=== PATIENT | male | born 1995 | race Caucasian/White ===

== ENCOUNTER 2023-10-04 11:07 | Outpatient (OUT) | payer BC, SELFPAY ==
--- NOTE | 2023-10-04 11:57 | P.GSHP_ITS ---
History of Present Illness History of Present Illness Chief complaint: uretheral stricture Narrative: Patient presents for preadmission testing. 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 The patient states he has dysuria, urinary retention, and incomplete bladder emptying. He denies abdominal pain, nausea, vomiting, fever, or any other complaints. Review of Systems ROS Narrative REVIEW OF SYSTEMS: Negative except as stated in HPI, ten or more systems reviewed. 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.912 - Unspecified bulbous urethral stricture, male (ICD-10) PTSD (post-traumatic stress disorder) ?F43.10 - Post-traumatic stress disorder, unspecified (ICD-10) Panic attacks ?F41.0 - Panic disorder [episodic paroxysmal anxiety] (ICD-10) Depression ?F32.A - Depression, unspecified (ICD-10) Bipolar disorder ?F31.9 - Bipolar disorder, unspecified (ICD-10) Anxiety ?F41.9 - Anxiety disorder, unspecified (ICD-10) Insomnia ?G47.00 - Insomnia, unspecified (ICD-10) COVID-19 ?U07.1 - COVID-19 (ICD-10) Pneumonia ?J18.9 - Pneumonia, unspecified organism (ICD-10) Heartburn ?R12 - Heartburn (ICD-10) Sepsis ?A41.9 - Sepsis, unspecified organism (ICD-10) Urinary retention ?R33.9 - Retention of urine, unspecified (ICD-10) Urethral stricture ?N35.919 - Unspecified urethral stricture, male, unspecified site (ICD-10) Kidney stones ?N20.0 - Calculus of kidney (ICD-10) Hydronephrosis ?N13.30 - Unspecified hydronephrosis (ICD-10) Suicide attempt (~2020) ?T14.91XA - Suicide attempt, initial encounter (ICD-10) UTI (urinary tract infection) ?N39.0 - Urinary tract infection, site not specified (ICD-10) 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 - Other neuromuscular dysfunction of bladder (ICD-10) Surgical History (Updated 10/04/23 @ 11:28 by Lashay Glass NP) History of urethral stent H/O cystoscopy ?Z98.890 - Other specified postprocedural states (ICD-10) Family History (Updated 10/04/23 @ 11:35 by Lashay Glass NP) Other Cancer Family history of DVT Family history of diabetes mellitus Family history of heart disease Family history of hypertension Family history of myocardial infarction Family history of seizures Family history of stroke Social History (Updated 10/04/23 @ 11:31 by Lashay Glass NP) Within the past year, how often did you have a drink containing alcohol: monthly or less Smoking status: Former smoker Non-prescribed substance use: cannabis (any form) 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 Highest level of school completed/degree received: high school graduate Meds Home Medications and Allergies Home Medications ?Medication ?Instructions ?Recorded ?Confirmed ?Type multivitamin (Daily Multi-Vitamin 1 tab PO DAILY 10/04/23 10/04/23 History tablet) Allergies Allergy/AdvReac Type Severity Reaction Status Date / Time cephalexin [From Keflex] Allergy Hives Verified 10/04/23 11:29 sulfamethoxazole Allergy Hives Verified 10/04/23 11:29 [From Bactrim] trimethoprim [From Bactrim] Allergy Hives Verified 10/04/23 11:29 Exam Narrative Exam Narrative: Constitutional: Awake, alert, comfortable, well-appearing, nontoxic, interactive, vital signs as charted Head: Normocephalic, atraumatic Neck: Supple, normal appearance, normal range of motion, no meningeal signs, no lymphadenopathy Respiratory: No respiratory distress, breath sounds clear Cardiovascular: Regular rate and rhythm, strong and regular heart tones Abdomen: Nontender, normal bowel sounds, soft, no CVA tenderness Musculoskeletal: Normal gait, no swelling or edema Skin: No rashes or induration, no lesions, only visible skin inspected Neuro: No neurological deficits, normal sensation Psychiatric: Oriented ?3, normal affect Assessment and Plan Assessment and Plan (1) Bulbous urethral stricture: (2) Alondra syndrome: Plan Cystoscopy, urethral dilation, retrograde urethrogram scheduled with Dr. Meza October 18, 2023.
== END 2023-10-04 11:08 | disposition home or self-care (01) ==
LOC: PST 11:14
PROVIDERS: PCP Family Medicine; Visit Provider Urology
DX: Z01.818 Encounter for other preprocedural examination (principal); N35.919 Unspecified urethral stricture, male, unspecified site
CPT/HCPCS: G0463

== ENCOUNTER 2023-10-18 12:12 | Day surgery (SDC) | payer BC, SELFPAY ==
[2023-10-04 11:53] VITALS: BP 129/84; PULSE 65; TEMP 36.4; O2SAT 99; BMI 42.3
[2023-10-18] VITALS (8 sets, daily range): BP systolic 107–123; BP diastolic 61–90; PULSE 60–88; TEMP 36–36.2; O2SAT 93–99; BMI 42.2
--- OUTSIDE RECORDS SUMMARY | 2023-10-18 12:28 | XMS_ITS | CCD ---
Author Organization [facility] Care Team Providers Care Bottom Finisher Name Role Phone BRIAN CONDE Admitting Unavailable BRIAN CONDE Attending Unavailable RONI VARMA V Consulting Unavailable ORTEGA MENDOZA Consulting Unavailable JOSE RAMON HOWELL Consulting Unavailable BRIAN CONDE Consulting Unavailable JACKSON BARCENAS Consulting Unavailable Fito Barcenas III Primary Care Physician MARIALUISA RÍOS Attending Unavailable Concepcion Meza Admitting Unavailable Concepcion Meza Attending Unavailable Concepcion Meza Referring Unavailable MARIALUISA RÍOS Referring Unavailable MARIALUISA RÍOS Admitting Unavailable MARIALUISA RÍOS Attending Unavailable Sudhir Dumont Attending Unavailable Concepcion Meza Attending Unavailable MARIALUISA RÍOS Attending Unavailable Concepcion Meza Attending Unavailable Allergies Allergy Classification Reported Allergen(s) Allergy Type Date of Onset Reaction(s) Facility (2 sources) Cephalexin; Translations: [Keflex] Drug Allergy 9 [facility] Repository (1 source) Sulfamethoxazole / Trimethoprim Drug Allergy 9 [facility] Repository (20 sources) Cephalexin; Translations: [cephalexin] Drug Allergy 9 Unknown, [facility] (20 sources) Sulfamethoxazole / Trimethoprim; Translations: [sulfamethoxazole-tr imethoprim] Drug Allergy 9 Unknown, [facility] (1 source) Sulfamethoxazole / Trimethoprim; Translations: [Bactrim DS] Drug Allergy [facility] Repository Medications Current Medications Medication Drug Class(es) Dates Sig (Normalized) Sig (Original) azithromycin 250 mg oral tablet (2 sources) Macrolide Antimicrobial Start: 09-24-2022 azithromycin 250 mg Tab 250 mg, Oral, As Directed, # 6 tab(s), Refills(s) 0, Pharmacy: [facility]/pharmacy #[id number], 166, cm, 09/24/22 19:57:00 EDT, Height/Length Dosing, 120.9, kg, 09/24/22 19:57:00 EDT, Weight Dosing Start Date: 09/24/22 Status: Ordered brompheniramine maleate 0.4 mg/ml / dextromethorphan hydrobromide 2 mg/ml / pseudoephedrine hydrochloride 6 mg/ml oral solution (4 sources) alpha-Adrenergic Agonist, Uncompetitive H-msnwce-H-aspartat e Receptor Antagonist, Sigma-1 Agonist Start: 01-24-2022 take 5 mL by mouth four times daily for cough and congestion Bromfed DM oral syrup 5 mL, Oral, QID for cough and congestion, 200 mL, Refill(s) 0, [facility]/pharmacy #[id number], 162.6, cm, 01/24/22 4:33:00 EST, Height/Length Dosing, 121, kg, 01/24/22 4:33:00 EST, Weight Dosing Start Date: 01/24/22 Status: Ordered Fiber Tab (2 sources) Start: 09-06-2023 take 1 tablet by mouth four times daily Fiber Tabs mg, Oral, QID, Refills(s) 0 Start Date: 09/06/23 Status: Ordered Naproxen (7 sources) Nonsteroidal Anti-inflammatory Drug Start: 09-06-2023 naproxen Oral, Refills(s) 0 Start Date: 09/06/23 Status: Ordered Start: 06-15-2022 take 1 tablet by yoana th twice daily Naprosyn 500 mg Tab 500 mg = 1 tab(s), Oral, BID, # 20 tab(s), Refills(s) 0, Pharmacy: [facility]/pharmacy #[id number], 164, cm, 06/15/22 0:33:00 EDT, Height/Length Dosing, 123.1, kg, 06/15/22 0:33:00 EDT, Weight Dosing Start Date: 06/15/22 Status: Ordered predniSONE 50 mg oral tablet (1 source) Start: 09-24-2022 End: 09-29-2022 take 1 tablet by mouth once daily predniSONE 50 mg Tab 50 mg = 1 tab(s), Oral, Daily, X 5 day(s), # 5 tab(s), Refills(s) 0, Pharmacy: [facility]/pharmacy #[id number], 166, cm, 09/24/22 19:57:00 EDT, Height/Length Dosing, 120.9, kg, 09/24/22 19:57:00 EDT, Weight Dosing Start Date: 09/24/22 Stop Date: 09/29/22 Status: Ordered tamsulosin hydrochloride 0.4 mg oral capsule (8 sources) alpha-Adrenerg ic Rossy Start: 10-06-2021 End: 10-13-2021 take 1 capsule by mouth once daily Flomax 0.4 mg Cap 0.4 mg = 1 cap(s), Oral, Daily, X 7 day(s), # 7 cap(s), Refills(s) 0, Pharmacy: [facility]/pharmacy #[id number], 170, cm, 10/06/21 1:57:00 EDT, Height/Length Dosing, 121, kg, 10/06/21 1:57:00 EDT, Weight Dosing Start Date: 10/06/21 Stop Date: 10/13/21 Status: Ordered Start: 12-30-2019 take 1 capsule by [facility] twice daily Flomax 0.4 mg Cap 0.4 mg = 1 cap(s), Oral, BID, # 60 cap(s), Refills(s) 6, Pharmacy: [facility]/pharmacy #[id number], 163, cm, 12/30/19 14:28:00 EST, Height/Length Dosing, 120, kg, 12/30/19 14:28:00 EST, Weight Dosing Start Date: 12/30/19 Status: Ordered Ventolin HFA 90 mcg/inh Aerosol-Adpt (4 sources) Start: 09-24-2022 take 1 puff(s) by inhalation every six hours for wheezing Ventolin HFA 90 mcg/inh Aerosol-Adpt 1 puff(s), Inhalation, q6hr for wheezing, 18 gram, Refill(s) 0, [facility]/pharmacy #[id number], 166, cm, 09/24/22 19:57:00 EDT, Height/Length Dosing, 120.9, kg, 09/24/22 19:57:00 EDT, Weight Dosing Start Date: 09/24/22 Status: Ordered Completed/Discontinued Medications Medication Drug Class(es) Dates Sig (Normalized) Sig (Original) albuterol HFA 90 mcg/inh MDI (9 sources) Start: 05-17-2019 take 1 dose by inhalation four times daily albuterol HFA 90 mcg/inh MDI 2 puff(s), Inhalation, QID, 1 EA, Refill(s) 0, [facility]/pharmacy #[id number], 163, cm, 05/17/19 4:33:00 EDT, Height/Length Measured, 118, kg, 05/17/19 4:33:00 EDT, Weight Measured Start Date: 05/17/19 Status: Ordered Problems Active Problems Problem Classification Problem Date Documented Date Episodic/Chronic Calculus of urinary tract (7 sources) Personal history of urinary calculi; Translations: [Kidney stone] Onset: 03-19-2019 Episodic Chronic obstructive pulmonary disease and bronchiectasis (1 source) Bronchitis; Translations: [Bronchitis, not specified as acute or chronic] Onset: 09-24-2022 Episodic Complications of surgical procedures or medical care (12 sources) Postprocedural bulbous urethral stricture; Translations: [Postoperative urethral stricture] Onset: 09-25-2023 01-17-2020 Episodic Conditions associated with dizziness or vertigo (1 source) Dizziness and giddiness; Translations: [Dizziness and giddiness] Episodic Genitourinary symptoms and ill-defined conditions (17 sources) Retention of urine, unspecified; Translations: [Obstructive and reflux uropathy, unspecified] Onset: 02-22-2019 01-17-2020 Episodic Nonspecific chest pain (2 sources) Chest pain; Translations: [Chest pain, unspecified] Onset: 07-11-2023 Episodic Other connective tissue disease (1 source) Pain in right foot; Translations: [Pain in right foot] Onset: 06-15-2022 Episodic Other connective tissue disease (1 source) Plantar fascial fibromatosis; Translations: [Plantar fascial fibromatosis] Onset: 06-15-2022 Episodic Other diseases of bladder and urethra (11 sources) Nonneurogenic neurogenic bladder dysfunction 01-17-2020 Chronic Other diseases of bladder and urethra (2 sources) Neurogenic dysfunction of the urinary bladder; Translations: [Other neuromuscular dysfunction of bladder] Onset: 08-08-2023 Chronic Other diseases of bladder and urethra (6 sources) Male urethral stricture; Translations: [Unspecified urethral stricture, male, unspecified site] Onset: 08-08-2023 Episodic Other diseases of kidney and ureters (1 source) Vesicoureteral-reflux, unspecified; Translations: [VESICOURETERAL-REFLUX UNSPECIFIED] Onset: 03-19-2019 Episodic Other diseases of kidney and ureters (11 sources) Hydronephrosis 01-17-2020 Episodic Other nutritional; endocrine; and metabolic disorders (11 sources) Body mass index 40+ - severely obese 01-31-2020 Chronic Other screening for suspected conditions (not mental disorders or infectious disease) (1 source) Electrocardiogram abnormal; Translations: [Abnormal electrocardiogram [ECG] [EKG]] Episodic Other upper respiratory infections (1 source) Acute upper respiratory infection; Translations: [Acute upper respiratory infection, unspecified] Onset: 01-24-2022 Episodic Residual codes; unclassified (1 source) Obstructive sleep apnea syndrome; Translations: [Obstructive sleep apnea (adult) (pediatric)] Chronic Screening and history of mental health and substance abuse codes (1 source) Personal history of nicotine dependence; Translations: [PERSONAL HISTORY OF NICOTINE DEPEND] Onset: 03-19-2019 Episodic Spondylosis; intervertebral disc disorders; other back problems (1 source) Pain in thoracic spine; Translations: [Pain in thoracic spine] Onset: 07-11-2023 Episodic Substance-related disorders (11 sources) Smoker 12-30-2019 Chronic Comment on above: Added secondary to d ocumentation in Social History. Syncope (1 source) Syncope and collapse; Translations: [Syncope and collapse] Episodic Unclassified (1 source) Unspecified bulbous urethral stricture, male; Translations: [UNSP BULBOUS URETHRAL STRCT MALE] Onset: 03-19-2019 Past or Other Problems Problem Classification Problem Date Documented Da te Episodic/Chronic Unclassified (11 sources) Ureter stricture/obstruction (disorder) 11-21-2016 Results Test Name Value Interpretation Reference Range Facility Inpatient Patient Summaryon 09-25-2023 Inpatient Patient Summary Inpatient Patient Summary [address] [address] Clinical Summary Person Information Name: BRIAN CHICAS Marta Age: 28 Years : 1995 Sex: Male PCP: Fito Barcenas III, DO Marital Status: Race: White Ethnicity: Non- or Language: Burmese Visit Id: Visit Reason: HISTORY OF URETHERAL STRICTURE Speciality: Acuity: Enc Type: Outpatient Med Service: Surgery Arrival: 09/25/2023 07:38:05 Discharge: Dispo Type: Address: [address] [place] [address] [phone] Provider Notes: Diagnosis: Urethral stricture in male Problems Active Unspecified urethral stricture, male, unspecified site Kidney stones BMI 45.0-49.9, adult Alondra syndrome Urethral stricture in male Hydronephrosis Urinary retention Smoker Smoking Status: Functional Status: Sensory Deficits: History of Falls: Mobility Assistance Prior to Admission: ADLs: Current Level of Assistance for Self-Care/Mobility: Cognitive Status: Allergies Keflex (rash) Bactrim DS (rash) sulfamethoxazole-trimeth oprim (Unknown) cephalexin (Unknown) Laboratory or Other Results This Visit (last charted value for your 09/25/2023 visit) No Laboratory or Other Results This Visit Measurements: Height: Weight: Blood Pressure: Not Valued / Not Valued BMI: Procedures No Procedures Documented Immunizations No Immunizations Documented This Visit Final Med List: naproxen By Mouth. polycarbophil (Fiber Tabs) By Mouth 4 times a day. Care Team Members: Attending Physician: Concepcion Meza MD Consulting Physician: Referring Physician: Concepcion Meza MD Follow up: With: Address: When: Concepcion Meza Comments: Office to schedule cysto, urethral dilation, Optilume Patient Education Information: EU - Cystoscopy Discharge Instructions (CUSTOM) [facility] Main OR Intraoperative Recor don 09-25-2023 Main OR Intraoperative Record Main OR Intraoperative Record IntraOp Document Type FTURO Summary Primary Physician: Concepcion Meza MD Finalized Date/Time: 09/25/23 08:47:59 Pt. Name: NERIBRIAN/Sex: 1995 Male Med Rec #: [id number] Physician: Concepcion Meza MD Financial #: [id number] Pt. Type: O Room/Bed: / Admit/Disch: 09/25/23 07:38:05 - Institution: Case Times FTURO Entry 1 Patient Times In Room 09/25/23 08:30:00 Out Room 09/25/23 08:48:00 Procedure Times Start 09/25/23 08:41:00 Stop 09/25/23 08:43:00 Anesthesia Times Last Modified By: Breann VARELA, Lesli Gonzalez 09/25/23 08:44:00 Case Attendance FTURO Entry 1 Entry 2 Entry 3 Case Attendee Derrick MANE, Concepcion Crain RN, Lesli Schumacher CST, Mary Gonzalez Role Performed Surgeon - Primary Drawing Tracer - Primary Scrub - Primary Time In 09/25/23 08:30:00 09/25/23 08:30:00 09/25/23 08:30:00 Time Out 09/25/23 08:48:00 09/25/23 08:48:00 09/25/23 08:48:00 Procedure CYSTOSCOPY LOCAL(.) CYSTOSCOPY LOCAL(.) CYSTOSCOPY LOCAL(.) Comments Last Modified By: Breann VARELA, Lesli Crain RN, Lesli Crain RN, Lesli Gonzalez 09/25/23 Tiffany Gonzalez 09/25/23 Tiffany Gonzalez 09/25/23 08:44:04 08:44:04 08:44:04 Surgical Procedures FTURO Entry 1 Procedure Description Procedure CYSTOSCOPY LOCAL Modifiers . Surgeon Description CYSTOSCOPY Primary Procedure Yes Primary Surgeon Derrick MANE, Concepcion Montoya Start 09/25/23 08:41:00 Stop 09/25/23 08:43:00 Anesthesia Type Local Surgical Service Urology Wound Class 2 - Clean-Contaminated Last Modified By: Breann VARELA, Lesli Gonzalez 09/25/23 08:44:03 General Case Data FTURO Pre-Care Text: Classifies surgical wound, implements aseptic technique, initiates traffic control Entry 1 Case Information OR URO 1 FT Case Level None Wound Class 2 - Clean-Contaminated Specialty Urology Preop Diagnosis HISTORY OF URETHERAL Postop Same As Preop Yes STRICTURE Postop Diagnosis HISTORY OF URETHERAL Outcomes Met? Yes STRICTURE Last Modified By: Breann VARELA, Lesli Gonzalez 09/25/23 08:44:08 Post-Care Text: The patient is free from signs and symptoms of infection EU IntraOp - FTURO Pre-Care Text: Implements protective measures prior to operative or invasive procedure, confirms identity before the operative or invasive procedure, verifies operative procedure, surgical site, and laterality Entry 1 EU Perioperative Protocols Procedure(s) CYSTOSCOPY LOCAL(.) Patient Identity Birthday, ID Band Verified (select at Check, Patient least 2): Participation Consents / H and P H&P, Surgery/Procedure Operative Site N/A Verified Consent Marking Verified Surgical Site Yes Laterality Verified n/a Verified Procedure Verified Yes Correct Patient Yes Position Verified Availability Equipment, Medication Time Out Concepcion Meza MD, Verified (If Participants Lesli Crain RN Applicable) Tiffany Gonzalez, Winsome DAIRY BACTERIOLOGIST, Mary A Time Out Complete 09/25/23 08:41:00 Allergies Reviewed? Yes Allergies Reviewed Self/Patient With Body Position Sitting In Chair Prep Area PENIS AND SCROTUM Prep Agents Betadine Solution Skin. Condition Unable to Visualize Description PARTIALLY CLOTHED AND DRAPED Additional None Specimens Collected Vitals - EU Blood Pressure 131/75 Pulse 84 bpm Respirations SPO2 96 % I&O - EU Outcomes Met? Yes Last Modified By: Lesli Crain RN 09/25/23 08:41:42 Post-Care Text: The patient is free from signs and symptoms of injury caused by extraneous objects Sign Out FTURO Entry 1 Before Patient Leaves OR Nurse verbally Yes Nurse verbally Yes confirms with the confirms with the team the name of team that the procedure(s) instrument, sponge, recorded and needle counts are correct (or N/A) Nurse verbally n/a Nurse verbally Yes confirms with the confirms with the team how the team whether there specimen is labeled are any equipment (including patient problems to be name), if applicable addressed Sign Out Complete 09/25/23 08:44:00 Last Modified By: Lesli Crain RN 09/25/23 08:44:02 Case Comments Finalized By: Lesli Crain RN Document Signatures Signed By: Lesli Crain RN 09/25/23 08:47 Normal [facility] Main OR Preoperative Recordo n 09-25-2023 Main OR Preoperative Record Main OR Preoperative Record Holding Area Document Type FTURO Summary Primary Physician: Concepcion Meza MD Finalized Date/Time: 09/25/23 07:58:21 Pt. Name: BRIAN CHICAS /Sex: 1995 Male Med Rec #: [id number] Physician: Concepcion Meza MD Financial #: [id number] Pt. Type: O Room/Bed: / Admit/Disch: 09/25/23 07:38:05 - Institution: Case Times Holding FTURO Pre-Care Text: Verifies consent for planned procedure, identifies individual values and wishes concerning care, includes family members in perioperative teaching Secures patient's records' belongings, and valuables, maintains patient's dignity and privacy, and maintains patient confidentiality Entry 1 In Holding 09/25/23 07:54:00 Outcomes Met? Yes Last Modified By: ALEENA Cruz RN, Ruthann 09/25/23 07:54:37 Post-Care Text: The patient participates in decisions affecting his or her perioperative plan of care The patient's right to privacy is maintained Surgery Checklist FTURO Entry 1 Patient Birthday, ID Band Procedure History and Physical, Identification: Check, Patient Verification: Surgical Consent, With Participation Patient NPO after Midnight: n/a Personal Items: Glasses Personal Items clothes Limitations: none Comment: Complaints of Pain: No Skin Integrity Unable to Visualize Vitals - EU Blood Pressure Pulse Respirations SPO2 Additional None RN Reviewed Yes Specimens Collected Last Modified By: ALEENA Cruz RN, Ruthann 09/25/23 07:56:14 Finalized By: ALEENA Cruz RN, Ruthann Document Signatures Signed By: ALEENA Cruz RN, Ruthann 09/25/23 07:56 ALEENA Cruz RN, Ruthann 09/25/23 07:58 Normal [facility] Operative Reporton Operative Report Operative Report Patient: BRIAN CHICAS Age: 28 years Sex: Male : 1995 Associated Diagnoses: None Author: Concepcion Meza MD Procedure Operative Information Details: Date/ Time: 09/25/2023 09:15:00. Pre-Op Dx: Urethral stricture in male (BPT59-CV N99.111, Discharge, Medical). Post-Op Dx: Bulbous urethral stricture (PTA39-VI N35.912, Working, Medical). Anesthesia Type: Local. Procedure: Local Cystoscopy. Complications: None. Risks/Benefits/Informed Consent: Surgical risks, benefits, details of the procedure have been explained to the patient, Full informed consent has been obtained. Intraoperative Information Prepped: Patient is brought back to the endoscopy suite, Patient is placed in supine position, Patient prepped in the usual fashion with Betadine solution, 2% Xylocaine Jelly is placed per Urethra, After waiting several minutes the Cystoscope is introduced. The Urethra is: 16Fr bulbar urethral stricture ~ 1.5 cm, 12-14Fr proximal bulbar urethral stricutre unable to accomodate cystoscope, appears to be about 2 cm, scar tissue noted. Removal: Cystoscope is removed, The patient tolerated it well. Postoperative Information Discharge: Follow up arranged, Discussed recurrence of bulbar urethral stricture and risks/benefits of treatment options. Pt not in retention, will dilate under anesthesia followed by Optilume. See separate clinic note regarding full discussion. . [facility] Comment on above: Result Comment: Elec tronically Signed By: Concepcion Meza MD\.br\Date and Time Signed: 09/25/23 09:18 EDT Outpatient Surgery Discharge Instructionon 09-25-2023 Outpatient Surgery Discharge Instruction Outpatient Surgery Discharge Instruction [place] [id number] Patient Discharge Instructions PERSON INFORMATION Name: BRIAN CHICAS Date of : 1995 Current Date: 09/25/2023 08:55:47 PHYSICIANS Admitting Physician: Concepcion Meza MD Comment: Discharge Diagnosis: Urethral stricture in male BRIAN CHICAS has been given the following list of follow-up instructions, prescriptions, and patient education materials: IF UNABLE TO CONTACT YOUR PHYSICIAN AND YOU FEEL IT IS AN EMERGENCY, GO TO THE NEAREST EMERGENCY ROOM OR CALL 911 Follow up: With: Address: When: Concepcion Meza Comments: Office to schedule cysto, urethral dilation, Optilume Comment: PATIENT EDUCATION INFORMATION Instructions: Cystoscopy ? Voiding after the procedure: there may be some pain, burning, urgency, frequency and blood tinged urine following the procedure. These symptoms usually resolve within 2-5 days. Drink the amount of fluid it takes to keep the urine pink to yellow or clear in color. Drinking enough water and fluids will help to ease any discomfort after your procedure. ? If you are having problems that seem out of the ordinary, please call. ? If unable to contact your physician and you feel it is an emergency, go to the nearest emergency room or call 911 ? Diet ? you may resume your normal diet. ? Activity ? you may resume your normal activities ? Call if you have a fever over 100 degrees. INERI DANIEL N, have received the attached patient education materials/instructions and have verbalized understanding: May we do a follow up call? Yes No I was present when discharge instructions were given Patient Signature Date Clinican/Nurse Signature Date You may receive a survey from [employer] asking you to rate your care experience. Your feedback is important and will help us understand what we do well and how we can improve the quality of care we provide to you, your loved ones and our community. It?s an honor to serve you. Thank you for choosing [facility] Ambulatory Visit Summaryon 0 09-06-2023 Ambulatory Visit Summary Ambulatory Visit Summary BRIAN CHICAS :1995 Visit Date:09/06/2023 Ambulatory Visit Instructions Your Diagnosis Alondra syndrome Unspecified urethral stricture, male, unspecified site Kidney stones Your Care Team Attending Physician - Derrick MANE, Concepcion Montoya Primary Care Physician - Fito Barcenas III, DO This Is Your Medications List naproxen polycarbophil (Fiber Tabs) Procedures Performed Cystoscopy (01/07/2020), Urodynamics (01/07/2020), Urethral stent. Discharge Vitals Heart Rate (Peripheral) 69 Respiratory Rate 16 Blood Pressure 139/88 Height 165 cm Height 65 in Weight 119 kg Weight 261.8 lb BMI 43.71 What to do next You Need to Schedule the Following Appointments Follow Up with Derrick MANE, Concepcion Montoya, URL, URO When: Where: [address] [place] [address] [phone] Medications What How Much When Instructions Unchanged naproxen Unchanged polycarbophil (Fiber Tabs) 4 times a day Allergies Bactrim DS (rash) Keflex (rash) cephalexin (Unknown) sulfamethoxazole-trimeth oprim (Unknown) Problems Ongoing - Any problem that you are currently receiving treatment for. BMI 45.0-49.9, adult Alondra syndrome Hydronephrosis Kidney stones Smoker Unspecified urethral stricture, male, unspecified site Urethral stricture in male Urinary retention Historical - Any problem that you are no longer receiving treatment for. Ureter stricture/obstruction Patient Survey You may receive a survey via text or e-mail asking about your office visit. Please share your experience with us by completing your survey. We appreciate your feedback and thank you for choosing us for your care. [facility] Urology Office/Clinic Noteon 09-06-2023 Urology Office/Clinic Note Urology Office/Clinic Note Chief Complaint 1m HPI Staff 28 year old male patient presents today for a 4 week follow up with voiding diary. Previous Dx: Alondra syndrome, kidney stones and urethral stricture in male. L ast PVR was 39 ml. Unsuccessful CIC. Did try for 2 days, but difficulty passing catheter. No voiding diary. Continues to have burning w/urination. Stream abruptly stops when voiding. Then starts back up. Causing pain at the beginning. Does not feel like he is emptying. Denies blood in urine. States it is always cloudily. History of Present Illness Tests reviewed: reviewed UA, JOB I have reviewed the previous health record information and history for this patient from [facility]. I have reviewed and verified the staff HPI to be accurate for this encounter. Review of Systems PHQ Score Initial Depression Screen Score: 0 SCORE ROS - Provider Constitutional: denies weight loss, denies hot flashes. Eyes: denies eye problems. Gastrointestinal: denies nausea, denies vomiting. Cardiovascular: denies chest pain or angina. Integumentary: no dryness Musculoskeletal: denies musculoskeletal symptoms. ENMT: denies otolaryngeal symptoms. Respiratory: no shortness of breath. Heme/Lymph: denies easy bleeding tendency, denies easy bruising tendency. Psychiatric: no confusion, no anxiety. Genitourinary: See HPI. Physical Exam Vitals & Measurements HR: 69(Peripheral) RR: 16 BP: 139/88 HT: 65 in HT: 165 cm WT: 119 kg WT: 261.8 lb BMI: 43.71 General Appearance: alert, no distress, well nourished, well developed male. Assessment/Plan Prior Dr. Conde pt. Last seen 02/2020. Initially referred by Liberty Razo CNP for neuromuscular dysfunction of the bladder. Kidney fxn 07/11/23: Cr 0.8, eGFR 122 BOSSMAN 21. 1. 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 Hx pyelo and prolonged admission in [place]. Denies hx of trauma. States he was a chronic bladder ricardo due to not having sensation to void. Dec 2019 - JOB neg. no VUR on VCUG. urodynamics showed intact sensation, >1L capacity, max flow 41 on uroflow (minimal output on pressure flow, only voided 70cc). cysto showed 1 cm bulbar urethral stricture. Per DDM OV note 03/13/20, pt was to CIC TID. -stopped shortly after as stream had started to get better, however still issues with voiding in general IPSS 24 (28). PVR 08/08/23 - 39 cc. JOB 08/30/23 [facility] - No hydro. Previously discussed with TATYANA difficulty with voiding: strains to urinate with every void. incredibly painful/difficult. I have to hold onto a shelf. struggles to start stream, keep stream going, empty completely. Had recommended pt to resume CIC TID at prior OV. Tried this x2 days but stopped given difficulty of passing catheter usp though. Advised pt this is likely due to stricture. Still reports having burning/pain with urination- not new. UA today shows moderate leuks. Likely secondary to not emptying often. Treat prior to dilation Denies having daily BMs. Educated pt on connection between bladder and bowels. Recommended stool softeners and MiraLax. -Bowel regimen -Timed voids. -See #2 Schedule cystoscopy. If stricture confirmed, will schedule cysto/UD with Optilume. -Consider SNM after #2 addressed. Voiding diary will need done prior. Educational pamphlets provided. 2. Unspecified urethral stricture, male, unspecified site (N35.919: Unspecified urethral stricture, male, unspecified site) S/p Cysto 01/07/20 by DDM - 1 cm bulbar urethral stricture. -Only had 50% sx improvement after Still has difficulty voiding, has to strain. See #1. Tried CIC x2 days but stopped given difficulty of passing catheter usp though. Advised pt this is likely due to stricture. Still reports having burning/pain with urination. Discussed treatment options including cysto/possible UD with chemotherapy balloon vs urethroplasty for more definitive repair. Risks/benefits of each option were discussed. Optilume is a paclitaxel -coated balloon that inhibits fibroblast growth and stricture recurrence for anterior urethral strictures < 3 cm. 75% success rate vs 27-50% with DVIU/dilation. Risks of recurrence, UTI, false passage, post-procedural hematuria, and dysuria. Systemic absorption was minimal. Contraception is recommended if partner has childbearing potential for 6 months after treatment. Pt states he has one daughter and he/his partner have struggled with fertility but are not actively trying to conceive at this time. He would like to try Optilume prior to urethroplasty -Schedule cystoscopy. The risks and benefits for cystoscopy have been discussed. The risks include bleeding, infection, and irritation of the bladder and urinary channel, among others. The patient, after being informed of procedural details and after questions have been answered, wishes to proceed. Full informed consent has been obtained. Will order Local anest (more content not included)... [facility] Comment on above: Result Comment: Elec tronically Signed By: Concepcion Meza MD\.br\Date and Time Signed: 09/06/23 15:36 EDT\.br\Electronically Co-Signed By: Shannon Rodriguez\.br\Date and Time Co-Signed: 09/06/23 11:43 EDT US Renalon 08-31-2023 US Renal Exam Date/Time: 08/30/2023 09:00 EDT Reason for Exam: N13.30;Other (please specify) Report IMPRESSION: No hydronephrosis. EXAMINATION: US Renal HISTORY: History of kidney stones. TECHNIQUE: Sonography of the kidneys was performed. Images were obtained and stored in a permanent archive. Unless otherwise stated, incidental findings identified in this report do not require routine follow-up imaging. COMPARISON: CT 06/20/2020. Ultrasound 01/13/2020. RESULT: Moderate limitations secondary to patient body habitus. Right Kidney: -Renal length: 9.5 cm cm -Parenchyma: Normal parenchymal echogenicity. Normal parenchymal thickness. -Collecting system: No hydronephrosis. -Calculus: No echogenic, shadowing calculus sonographically within limitations of the study. -Lesion: None. Left Kidney: -Renal length: 11.5 cm cm -Parenchyma: Normal parenchymal echogenicity. Normal parenchymal thickness. -Collecting system: No hydronephrosis. -Calculus: No echogenic, shadowing calculus sonographically within limitations of the study. -Lesion: None. Bladder: Not evaluated. Report Ordering Provider: , FINAL REPORT Dictated: 08/31/2023 12:58 pm Brian Hagan MD Signed (Electronic Signature): 08/31/2023 12:58 pm Signed by: Brian Hagan MD Transcribed by: CADENCE Technologist: MICHELLE [facility] Consultation Noteon 08-10-19 Consultation Note [id number] FF [facility] Screenson 08-10-2023 Screens [id number] FF Normal [facility] Screens [id number] Normal [facility] Patient Educationon 08-08-19 24 Patient Education Urology Neurogenic Bladder Neurogenic bladder is a bladder control disorder. It is usually caused by problems with the nerves that control the bladder. The brain sends signals through the spinal cord to the muscles in the bladder that start and stop urine flow. With neurogenic bladder, the nerves and muscles do not work together the way they should. This condition may make the bladder overactive, meaning you have trouble holding urine. In other cases, it may make the bladder underactive. This means that you have trouble passing urine. What are the causes? This condition may be caused by nerve damage or a condition that disrupts the signals from your brain to your bladder. Many things can cause these nerve problems, including: ? A disease that affects the nervous system, such as: ? Alzheimer's disease. ? Cerebral palsy. ? Multiple sclerosis. ? Diabetes. ? Parkinson's disease. ? Damage to your brain or spinal cord. This can come from: ? Trauma. ? Tumors. ? Infection. ? Surgery. ? Alcohol abuse. ? Stroke. ? A congenital disability that affects the spinal cord. What increases the risk? You are more likely to develop this condition if you have nerve damage or a nerve disorder. What are the signs or symptoms? Signs and symptoms of this condition include: ? Leaking or gushing urine (incontinence). ? A sudden, strong urge to pass urine (urgency). ? Frequent urination during the day and night. ? Being unable to empty your bladder completely (urinary retention). ? Frequent urinary tract infections. How is this diagnosed? This condition may be diagnosed based on: ? Your symptoms and medical history. ? A physical exam. ? Records from a bladder diary. You may be asked to keep a record or log of your bladder symptoms and the times that you urinate. You may also have tests, such as: ? A urine test to check for infection. ? A bladder scan after you urinate to see how much urine is left in your bladder. ? Tests to measure your urine flow and see how well the flow is controlled (urodynamic tests). ? A procedure that uses a small device with a camera to look through your urethra into your bladder (cystoscopy). A health care provider who specializes in the urinary tract (urologist) may do this test. ? Imaging tests of your brain or spine, such as MRI or CT scan. How is this treated? Treatment for this condition depends on the cause and the symptoms that you have. Work closely with your health care provider to find the treatments that will improve your quality of life. Treatment options include: ? Learning ways to control when you urinate, such as: ? Urinating at scheduled times. ? Training yourself to delay urination. ? Exercises to strengthen the muscles that control urine flow (Kegel exercises). ? Avoiding foods or drinks that make your symptoms worse. ? Taking medicines to: ? Stimulate an underactive bladder. ? Relax an overactive bladder. ? Treat a urinary tract infection. ? Learning how to use a thin tube (catheter) to empty your bladder. A catheter is a hollow tube that you pass through your urethra. ? Procedures to stimulate the nerves that control your bladder. ? Surgery, if other treatments do not help. Follow these instructions at home: Lifestyle ? Keep a bladder diary to find out which foods, liquids, or activities make your symptoms worse. ? Use your bladder diary to schedule bathroom trips. If you are away from home, plan to be near a bathroom when your schedule says you will need one. ? Limit beverages that stimulate urination. These include soda, coffee, and tea. ? After urinating, wait a few minutes and try again. ? Make sure you urinate just before you leave the house and just before you go to bed. Kegel exercises Do Kegel exercises to strengthen the muscles that control the passing of urine. These muscles are the ones you use to try to hold urine when you need to urinate. To do Kegel exercises: 1. Squeeze your pelvic floor muscles tight, as if you are trying to stop the flow of urine. You should feel a tight lift in your rectal area. If you are female, you should also feel a tightness in your vaginal area. Keep your stomach, buttocks, and legs relaxed. 2. Hold the muscles tight for 5?10 seconds. 3. Relax your muscles for the same amount of time. 4. Repeat 10 times. Repeat this exercise 3 times a day or as many times as told by your health care provider. General instructions ? Take dwoh-fja-wcpiwme and prescription medicines only as told by your health care provider. ? Keep all follow-up visits. This is important. Contact a health care provider if: ? You are having a hard time controlling your symptoms. ? Your symptoms are getting worse. ? You have signs of a urinary tract infection. These may include: ? A burning feeling when you urinate. ? Fever or chills. ? Cloudy or bloody urine. (more content not included)... Normal [facility] BMPon 07-11-2023 Anion gap [Moles/Vol] 11 mmol/L Normal 6-16 [facility] Comment on above: Performed By: #### 1 [id number], 4623397, 8930020, 01191793, 3579669, 4107663, 03656330 ####[facility] [address] [place] [address] Calcium [Mass/Vol] 9.1 mg/dL Normal 8.9-11.1 [facility] Comment on above: Performed By: #### 1 7631285, 7247193, 1259916, 85997693, 6831684, 3899419, 09542603 ####[facility] [address] [place] [address] Chloride [Moles/Vol] 106 mmol/L Normal 101-111 [facility] Comment on above: Performed By: #### 1 0415736, 2778526, 9524785, 18155726, 9199333, 4380621, 86067570 ####[facility] [address] [place] [address] CO2 [Moles/Vol] 28 mmol/L Normal 21-31 [facility] Comment on above: Performed By: #### 1 5982845, 2339588, 7901379, 68753470, 0781023, 6838717, 78943077 ####[facility] [address] [place] [address] Creatinine [Mass/Vol] 0.8 mg/dL Normal 0.5-1.3 [facility] Comment on above: Performed By: #### 1 7588287, 5542520, 6059867, 21075389, 9309675, 4553720, 38135867 ####[facility] [address] [place] [address] Glucose [Mass/Vol] 115 mg/dL Normal 55-199 [facility] Comment on above: Performed By: #### 1 3701651, 2348003, 3709946, 05101982, 4870699, 6492237, 33275709 ####[facility] [address] [place] [address] Potassium [Moles/Vol] 4.3 mmol/L Normal 3.5-5.3 [facility] Comment on above: Performed By: #### 1 9419791, 5742102, 7078932, 56964181, 5363097, 0162109, 88103271 ####[facility] [address] [place] [address] Sodium [Moles/Vol] 141 mmol/L Normal 135-145 [facility] Comment on above: Performed By: #### 1 4337898, 1369277, 3892446, 65552294, 0040427, 3755154, 53818247 ####[facility] [address] [place] [address] Urea nitrogen [Mass/Vol] 16 mg/dL Normal 5-21 [facility] Comment on above: Performed By: #### 1 8779524, 4121164, 2684001, 05672330, 5924872, 6533866, 00856763 ####[facility] [address] [place] [address] Urea nitrogen/Creatinine [Mass ratio] 20 No Units Normal 10-20 [facility] Comment on above: Performed By: #### 1 3868082, 0659409, 7873074, 65844865, 9737479, 2729936, 07446130 ####[facility] [address] [place] [address] CBC w/ Auto Diffon 05-14-202 4 Basophils/100 WBC (Bld) 0.8 % Normal 0.0-2.0 [facility] Comment on above: Performed By: #### 1 8584371, 9753981, 9190427, 32114178, 0741322, 7364104, 32264916 ####[address] [place] [address] Basophils/Leukocytes Auto (Bld) [Pure # fraction] 0.1 E9/L Normal 0.0-0.2 [facility] Comment on above: Performed By: #### 1 4720403, 8462987, 0181180, 96149958, 1538138, 2367557, 09393167 ####[address] [address] Eosinophils (Bld) [#/Vol] 0.3 E9/L Normal 0.0-0.5 [facility] Comment on above: Performed By: #### 1 9925668, 1019753, 8878322, 64950227, 6265341, 9044406, 56363519 ####[address] [address] Eosinophils/100 WBC (Bld) 3.6 % Normal 0.0-8.0 [facility] Comment on above: Performed By: #### 1 3525485, 7004856, 7047373, 14811752, 4368910, 0729968, 05261440 ####[address] [address] Erythrocyte distribution width (RBC) [Ratio] 13.5 % Normal 10.9-14.2 [facility] Comment on above: Performed By: #### 1 7168230, 2638556, 3180860, 67323017, 3545376, 8027260, 64316696 ####[address] [address] Hematocrit (Bld) [Volume fraction] 47.4 % Normal 37.7-49.0 [facility] Comment on above: Performed By: #### 1 9945316, 7957393, 6911828, 85939444, 1491417, 6835901, 56868784 ####[address] [place] [address] Hemoglobin (Bld) [Mass/Vol] 16.2 g/dL Normal 13.5-17.5 [facility] Comment on above: Performed By: #### 1 2340244, 6216212, 0499715, 32196616, 3661786, 3465764, 84667835 ####[address] [place] [address] Lymphocytes (Bld) [#/Vol] 2.7 E9/L Normal 1.0-4.0 [facility] Comment on above: Performed By: #### 1 0348927, 5300583, 6207035, 08933814, 2987959, 9826654, 56403434 ####[place] [address] Lymphocytes/100 WBC (Bld) 35.6 % Normal 14.0-50.0 [facility] Comment on above: Performed By: #### 1 8844819, 2101660, 4649138, 08748497, 4032372, 3156486, 80535596 ####[address] [address] MCH (RBC) [Entitic mass] 28.2 pg Normal 27.0-34.0 [facility] Comment on above: Performed By: #### 1 5064563, 7609940, 3114703, 27630246, 1864659, 5711077, 34489970 ####[address] [address] MCHC (RBC) [Mass/Vol] 34.2 g/dL Normal 31.4-36.0 [facility] Comment on above: Performed By: #### 1 1879794, 1492355, 3174122, 13846959, 3810532, 7778644, 21152956 ####[address] [address] MCV (RBC) [Entitic vol] 82.5 fL Normal 80.0-100.0 [facility] Comment on above: Performed By: #### 1 8531981, 9977250, 9509016, 45129651, 4159986, 4758385, 66672221 ####[address] [address] Monocytes (Bld) [#/Vol] 0.7 E9/L Normal 0.2-1.0 [facility] Comment on above: Performed By: #### 1 5266563, 6178121, 7223041, 61723984, 9851966, 3866227, 80409715 ####[address] [address] Neutrophils (Bld) [#/Vol] 3.8 E9/L Normal 2.0-7.5 [facility] Comment on above: Performed By: #### 1 0413785, 4872143, 1751811, 44706374, 5241601, 4735567, 48280170 ####[address] [address] Neutrophils/100 WBC (Bld) 50.3 % Normal 36.0-75.0 [facility] Comment on above: Performed By: #### 1 1312357, 8748895, 4601791, 31539041, 0745068, 2139453, 04213087 ####[address] [address] Platelet 192.0 E9/L Normal 150.0-500.0 [facility] Comment on above: Performed By: #### 1 2511983, 5270080, 0011638, 35002476, 3727323, 1203592, 48041218 ####[address] [address] Platelet mean volume (Bld) [Entitic vol] 8.3 fL Normal 6.4-10.8 [facility] Comment on above: Performed By: #### 1 2813518, 7660852, 8496705, 95945853, 8063249, 5150420, 40145075 ####[facility] [address] [place] [address] RBC (Bld) [#/Vol] 5.8 E12/L Normal 4.3-5.9 [facility] Comment on above: Performed By: #### 1 2273532, 9702355, 7609787, 38448613, 9494526, 8833105, 70359996 ####[facility] [address] [place] [address] WBC corrected for nucl RBC Auto (Bld) [#/Vol] 7.5 E9/L Normal 4.0-11.0 [facility] Comment on above: Performed By: #### 1 6428402, 6256975, 9823442, 97668495, 1259447, 5862405, 30699770 ####[facility] [address] [place] [address] CHEMISTRYOrdered By: SYSTEM SYSTEM on 07-11-2023 Troponin 11.80 pg/mL Low 15.90 - 38.40 pg/mL [facility] Comment on above: Interpretive Data: T he 95% CI (Confidence Interval) PPV (Positive Predictive Value) for myocardial infarction in females is 38 pg/mL, in males 51 pg/mL. The results should be used in conjunction with clinical conditions of myocardial infarction. (Access High Sensitivity Troponin I Instructions For Use, Lizz Christian, September 2017) Albumin [Mass/Vol] 4.4 g/dL Normal 3.3 - 5.0 gm/dL [facility] Albumin/Globulin [Mass ratio] 1.8 {ratio} Normal 1.1 - 2.2 [facility] ALP [Catalytic activity/Vol] 67 [iU]/d Normal 21 - 98 Int._Unit/L [facility] ALT No additional P-5'-P [Catalytic activity/Vol] 37 [iU]/d Normal 6 - 46 Int._Unit/L [facility] Anion gap [Moles/Vol] 11 mmol/L Normal 6 - 16 mEq/L R em[facility] Chem AST [Catalytic activity/Vol] 18 [iU]/d Normal 5 - 43 Int._Unit/L [facility] Bilirubin [Mass/Vol] 0.5 mg/dL Normal 0.0 - 1 .1 mg/dL [facility] Bilirubin.direct [Mass/Vol] 0.1 mg/dL Normal 0.0 - 0.4 mg/dL [facility] Bilirubin.indirect [Mass or moles/Vol] 0.4 mg/dL Normal 0.1 - 0.9 mg/dL [facility] Calcium [Mass/Vol] 9.1 mg/dL Normal 8.9 - 11. 1 mg/dL [facility] Chloride [Moles/Vol] 106 mmol/L Normal 101 - 1 11 mmol/L [facility] CO2 [Moles/Vol] 28 mmol/L Normal 21 - 31 mmol/L [facility] Creatinine [Mass/Vol] 0.8 mg/dL Normal 0.5 - 1.3 mg/dL [facility] eGFR 122 mL/min/1.73 m2 Normal >=59mL/mi n/1 .73 m2 [facility] Globulin (S) [Mass/Vol] 2.4 g/dL Normal 1.4 - 4.0 gm/dL [facility] Glucose [Mass/Vol] 115 mg/dL Normal 55 - 199 mg/dL [facility] Lipase [Catalytic activity/Vol] 12 U/L Low 13 - 58 unit/L [facility] Potassium [Moles/Vol] 4.3 mmol/L Normal 3.5 - 5.3 mmol/L [facility] Protein [Mass/Vol] 6.8 g/dL Normal 6.0 - 7.8 gm/dL [facility] Sodium [Moles/Vol] 141 mmol/L Normal 135 - 145 mmol/L [facility] Troponin 12.10 pg/mL Low 15.90 - 38.40 pg/mL [facility] Comment on above: Interpretive Data: T he 95% CI (Confidence Interval) PPV (Positive Predictive Value) for myocardial infarction in females is 38 pg/mL, in males 51 pg/mL. The results should be used in conjunction with clinical conditions of myocardial infarction. (Access High Sensitivity Troponin I Instructions For Use, Lizz Hillsdale, September 2017) Urea nitrogen [Mass/Vol] 16 mg/dL Normal 5 - 21 mg/dL [facility] Urea nitrogen/Creatinine [Mass ratio] 20 mg/mg Normal 10 - 20 [facility] COAGULATIONOrdered By: Kyle Stout on 07-11-2023 aPTT Coag (PPP) [Time] 31.6 s Normal 25.1 - 36.5 second(s) [facility] Auto [facility] Comment on above: Interpretive Data: P arameter 15 days - 4 weeks 1 - 5 months 6 - 11 months 1 - 5 years 6 - 10 years 11 - 17 years PTT Mean: 35.4 (27.6-45.6) Mean: 33.5 (24.8-40.7) Mean: 32.4 (25.1-40.7) Mean: 31.6 (24.0-39.2) Mean: 31.6 (26.9-38.7) Mean: 31.0 (24.6-38.4) Pediatric Reference ranges were obtained from a study by [employer] Adrian et al. prepared from 1437 samples obtained at 7 different centers using the same coagulation reagent and instrumentation as [facility]. Currently there are no coagulation studies available worldwide for children to 14 days, and no normal ranges. Heparin therapeutic range (represented by Anti-Factor Xa activity of 0.2 - 0.4 U/mL) corresponds to PTT of 56.6 - 109.0 sec. INR Coag (PPP) [Relative time] 0.94 {INR} Invalid Interpretation Code [facility] Comment on above: Interpretive Data: I NR results are specifically intended to assess patients stabilized on long-term Anticoagulation therapy suggested INR s Less Intensive Anticoagulation 2.0 3.0 Conventional Range 3.0 4.5 PT Coag (PPP) [Time] 10.5 s Normal 9.4 - 1 2.5 second(s) [facility] Comment on above: Interpretive Data: 1 5 days - 4 weeks 1 - 5 months 6 -11 months 1 5 years 6 10 years 11 -17 years Mean: 11.2 (9.5 12.6) Mean: 11.0 (9.7 12.8) Mean: 11.0 (9.8 13.0) Mean: 11.3 (9.9 13.4) Mean: 11.7 (10.0 14.6) Mean: 11.8 (10.0 - 14.1) Pediatric Reference ranges were obtained from a study by [employer] Adrian et al. prepared from 1437 samples obtained at 7 different centers using the same coagulation reagent and instrumentation as [facility]. Currently there are no coagulation studies available worldwide for children to 14 days, and no normal ranges. Consent for Treatmenton 06-27 Consent for Treatment [id number] F Normal [facility] Discharge Instructionson Discharge Instructions [id number] FF Normal [facility] ED Clinical Summaryon 2023 ED Clinical Summary (Inserted Image. Sidra ble to display) [place] [id number] ED Clinical Summary Person Information Name: BRIAN CHICAS Radha/[facility] Age: 28 Years : 1995 Sex: Male Language: Burmese PCP: Fito Barcenas III, DO Marital Status: Phone: [phone] Visit Id: Visit Reason: Nausea; Back pain; Chest pain; NAUSEOUS, BACK & CHEST PAIN Speciality: Acuity: 3 Enc Type: Emergency Med Service: Emergency Arrival: 07/11/2023 03:44:28 Discharge: 07/11/2023 06:14:32 LOS: 000 02:30 Checkin: 07/11/2023 03:44:28 Checkout: 07/11/2023 06:14:32 Dispo Type: Home (Routine DC) EVENTS: Event Name Event Status Request Date/Time Start Date/Time Complete Date/Time Arrive Complete 07/11/2023 03:44:28 07/11/2023 03:44:28 07/11/2023 03:44:28 Document Home Meds Request 07/11/2023 03:44:28 Triage Complete 07/11/2023 03:44:28 07/11/2023 03:52:55 07/11/2023 03:52:55 EKG Complete 07/11/2023 03:47:05 07/11/2023 03:51:25 Bed Assign Complete 07/11/2023 03:47:14 07/11/2023 03:47:14 07/11/2023 03:47:14 Dr Exam Complete 07/11/2023 03:47:14 07/11/2023 03:47:21 07/11/2023 03:47:21 RN Exam Complete 07/11/2023 03:47:14 07/11/2023 04:03:16 07/11/2023 04:03:16 Registration Complete 07/11/2023 03:47:21 07/11/2023 06:10:11 07/11/2023 06:10:11 Isolation Screening Request 07/11/2023 03:52:56 Meds Admin Complete 07/11/2023 03:54:09 07/11/2023 03:57:26 Pending Labs Complete 07/11/2023 03:54:09 07/11/2023 05:45:59 07/11/2023 05:53:44 Lab Complete 07/11/2023 03:54:09 07/11/2023 04:22:24 Patient Care Request 07/11/2023 03:54:09 RT Request 07/11/2023 03:54:09 X-Ray Complete 07/11/2023 03:54:09 07/11/2023 03:55:27 07/11/2023 04:11:25 Pending Labs Complete 07/11/2023 04:02:55 07/11/2023 04:02:55 07/11/2023 04:22:24 Lab Complete 07/11/2023 04:02:55 07/11/2023 04:02:55 07/11/2023 04:22:24 Wet Read Request 07/11/2023 04:11:25 Meds Admin Complete 07/11/2023 04:30:41 07/11/2023 04:46:20 Discharge Complete 07/11/2023 05:59:00 07/11/2023 06:21:40 07/11/2023 06:21:40 Pending Labs Complete 07/11/2023 06:00:51 07/11/2023 06:00:51 07/11/2023 06:00:52 Reg Complete Request 07/11/2023 06:10:11 Reg Bed Request Complete 07/11/2023 06:10:11 07/11/2023 06:10:11 07/11/2023 06:10:11 Transfer Complete 07/11/2023 06:21:40 07/11/2023 06:21:40 07/11/2023 06:21:40 ADDRESS: [address] [place] [phone] PHYS DOC NOTES: MEDICAL INFORMATION: Prescriptions Given: Medications to Continue with No Changes Other Medications albuterol (albuterol HFA 90 mcg/inh MDI) 2 Puffs Inhalation 4 times a day. Refills: 0. albuterol (Ventolin HFA 90 mcg/inh Aerosol-Adpt) 1 Puffs Inhalation every 6 hours as needed for wheezing. Refills: 0. azithromycin (azithromycin 250 mg Tab) 250 Milligram By Mouth As Directed. Refills: 0. brompheniramine/dextrome thorphan/PSE (Bromfed DM oral syrup) 5 Milliliter By Mouth 4 times a day as needed for cough and congestion. Refills: 0. naproxen (Naprosyn 500 mg Tab) 1 Tablets By Mouth 2 times a day. Refills: 0. tamsulosin (Flomax 0.4 mg Cap) 1 Capsules By Mouth 2 times a day. Refills: 6. PATIENT EDUCATION INFORMATION: Instructions: Nonspecific Chest Pain, Adult; Acute Back Pain, Adult Follow up: With: Address: When: Fito Barcenas [address] [place] [id number] [facility] (5) In 3 days DIAGNOSIS: Acute left-sided thoracic back pain; Chest pain Normal [facility] ED Note-Physicianon 07-11-19 ED Note-Physician Basic Information Time Seen: Sudhir Dumont DO 07/11/2023 03:47 Chief Complaint Lower back pain with radiation into chest and down (L) arm to fingers. Nausea, no vomiting. No cardiac history History of Present Illness HPI: Patient is a 28-year-old male who presents the ED for left-sided back and chest pain as well as nausea. Patient states that he had been at work and just finished his lunch when he lifted something up started having a sharp pain in his left mid back radiating into his left chest and into his left arm. He has associated nausea with this but no vomiting. No shortness of breath. He denies ever having anything like this in the past. It has been constant since that time and nothing seems to make it better or worse. He does report a family history of cardiac disease but no personal history. ROS: Pertinent review of systems conducted and is negative except as noted above. Physical exam: General: nontoxic appearing and in no distress HEENT: Mucous membranes moist Neuro: awake and alert Neck: supple, trachea midline Card: Heart regular rate and rhythm no murmur Resp: Lungs clear to auscultation no wheeze or rhonchi Abd: Soft and nondistended. Left upper quadrant tenderness without rebound or guarding. Ext: No gross deformity or edema Physical Exam Vitals & Measurements T: 36.4 ?C(Oral) HR: 75(Peripheral) RR: 16 BP: 135/69 SpO2: 100% HT: 165 cm WT: 116.3 kg BMI: 42.72 Medical Decision Making MEDICAL DECISION MAKING Number and Complexity of Problems Differential Diagnosis: [] [facility] Data External documents reviewed: N/A My EKG interpretation: Noted in chart if applicable My CT interpretation: N/A My X-ray interpretation: Noted in chart if applicable My Ultrasound interpretation: N/A Decision rules/scores evaluated: Heart Score for Major Cardiac Event History: Example factors for history - pattern of chest pain, onset, duration, relation with exercise, stress or cold, localization, concominant symptoms. reaction to sublingual nitrates, [] Highly suspicious +2 [] Moderately suspicious +1 [X] Slightly suspicious 0 EKG: [] Significant ST-Depression +2 [] Non specific repolarization disturbance +1 [X] Normal 0 Age: [] >= 65 +2 [] 45-65 + 1 [X] <45 0 Risk Factors: (HLD, HTN, DM, Cigarette Smoking, Pos Family Hx, Obesity) [] >3 risk factors or hx of atheroslerotic disease + 2 [] 1-2 risk factors + 1 [X] No risk factors known 0 Troponin: [] >= 3X normal + 2 [] 1-3X normal + 1 [X] <= Normal 0 [X] 0-3 Points 0.9 - 1.7% risk of major adverse cardiac event in 6 weeks [] 4-6 Points 12-16.6% risk of major adverse cardiac event in 6 weeks [] 7-10 Points 50-65% risk of major adverse cardiac event in 6 weeks [X] 0-3 Points with 2 sets of negative cardiac markers <1% risk of major adverse cardiac event in 30 days. Discussed with: N/A Treatment and Disposition ED Course: Patient is nontoxic-appearing and in no distress. Cardiac workup was obtained in the ED. Patient was given IV fluids as well as Zofran. EKG shows no acute injury pattern. Initial troponin is within normal limits. Patient was given a dose of IV Toradol for comfort. Repeat troponin is stable and within normal limits. Patient has a heart score of 0 with 2 negative troponins. I do not suspect cardiac origin of his discomfort. On reassessment the patient feels greatly improved. Discussed the results of his lab work and imaging. Discussed the plan of discharge with follow-up with his primary care physician on an outpatient basis. Shared decision making: As above Code status: N/A Assessment/Plan Acute left-sided thoracic back pain (M54.6: Pain in thoracic spine) Chest pain (R07.9: Chest pain, unspecified) Orders: ketorolac, 15 mg = 1 mL, Injection, IV Push, Once, Stop date 07/11/23 4:30:00 EDT, STAT, Start date 07/11/23 4:30:00 EDT, 07/11/23 4:30:00 EDT ondansetron, 4 mg = 2 mL, Injection, IV Push, Once, Stop date 07/11/23 3:53:00 EDT, STAT, Start date 07/11/23 3:53:00 EDT, 07/11/23 3:53:00 EDT Sodium Chloride 0.9% intravenous solution, 1,000 mL, Soln-IV, IV, Once, Stop date 07/11/23 3:53:00 EDT, STAT, Start date 07/11/23 3:53:00 EDT, Infuse over 61, minute(s) Basic Metabolic Panel CBC w/ Auto Diff ECG 12 Lead Adult ED Cardiac Monitoring eGFR Hepatic Function Panel Lipase Level Oxygen Saturation Oxygen Therapy PT & PTT Saline Lock Insert Troponin 0 Hr. Troponin 1 Hr. UA with Cult Rflx XR Chest Single View Medications Administered Given ketorolac 15 mg/mL Inj, 15 mg, IV Push NS 1000 ml Bolus, 1000 mL, IV ondansetron 4 mg/2 mL Inj, 4 mg, IV Push Disposition Plan Discharge Prescription List Prescriptions No active prescription medications Follow-up With When Contact Information (more content not included)... Normal [facility] Comment on above: Result Comment: Elec tronically Signed By: Sudhir Dumont DO\.br\Date and Time Signed: 07/11/23 06:00 EDT ED Patient Education Noteon 07-11-2023 ED Patient Education Note Orthopedics Acute Back Pain, Adult Acute back pain is sudden and usually short-lived. It is often caused by an injury to the muscles and tissues in the back. The injury may result from: ? A muscle, tendon, or ligament getting overstretched or torn. Ligaments are tissues that connect bones to each other. Lifting something improperly can cause a back strain. ? Wear and tear (degeneration) of the spinal disks. Spinal disks are circular tissue that provide cushioning between the bones of the spine (vertebrae). ? Twisting motions, such as while playing sports or doing yard work. ? A hit to the back. ? Arthritis. You may have a physical exam, lab tests, and imaging tests to find the cause of your pain. Acute back pain usually goes away with rest and home care. Follow these instructions at home: Managing pain, stiffness, and swelling ? Take tuyo-fav-plpfdah and prescription medicines only as told by your health care provider. Treatment may include medicines for pain and inflammation that are taken by mouth or applied to the skin, or muscle relaxants. ? Your health care provider may recommend applying ice during the first 24?48 hours after your pain starts. To do this: ? Put ice in a plastic bag. ? Place a towel between your skin and the bag. ? Leave the ice on for 20 minutes, 2?3 times a day. ? Remove the ice if your skin turns bright red. This is very important. If you cannot feel pain, heat, or cold, you have a greater risk of damage to the area. ? If directed, apply heat to the affected area as often as told by your health care provider. Use the heat source that your health care provider recommends, such as a moist heat pack or a heating pad. ? Place a towel between your skin and the heat source. ? Leave the heat on for 20?30 minutes. ? Remove the heat if your skin turns bright red. This is especially important if you are unable to feel pain, heat, or cold. You have a greater risk of getting burned. Activity ? Do not stay in bed. Staying in bed for more than 1?2 days can delay your recovery. ? Sit up and stand up straight. Avoid leaning forward when you sit or hunching over when you stand. ? If you work at a desk, sit close to it so you do not need to lean over. Keep your chin tucked in. Keep your neck drawn back, and keep your elbows bent at a 90-degree angle (right angle). ? Sit high and close to the steering wheel when you drive. Add lower back (lumbar) support to your car seat, if needed. ? Take short walks on even surfaces as soon as you are able. Try to increase the length of time you walk each day. ? Do not sit, drive, or head of research & insights one place for more than 30 minutes at a time. Sitting or standing for long periods of time can put stress on your back. ? Do not drive or use heavy machinery while taking prescription pain medicine. ? Use proper lifting techniques. When you bend and lift, use positions that put less stress on your back: ? Bend your knees. ? Keep the load close to your body. ? Avoid twisting. ? Exercise regularly as told by your health care provider. Exercising helps your back heal faster and helps prevent back injuries by keeping muscles strong and flexible. ? Work with a physical therapist to make a safe exercise program, as recommended by your health care provider. Do any exercises as told by your physical therapist. Lifestyle ? Maintain a healthy weight. Extra weight puts stress on your back and makes it difficult to have good posture. ? Avoid activities or situations that make you feel anxious or stressed. Stress and anxiety increase muscle tension and can make back pain worse. Learn ways to manage anxiety and stress, such as through exercise. General instructions ? Sleep on a firm mattress in a comfortable position. Try lying on your side with your knees slightly bent. If you lie on your back, put a pillow under your knees. ? Keep your head and neck in a straight line with your spine (neutral position) when using electronic equipment like smartphones or pads. To do this: ? Raise your smartphone or pad to look at it instead of bending your head or neck to look down. ? Put the smartphone or pad at the level of your face while looking at the screen. ? Follow your treatment plan as told by your health care provider. This may include: ? Cognitive or behavioral therapy. ? Acupuncture or massage therapy. ? Meditation or yoga. Contact a health care provider if: ? You have pain that is not relieved with rest or medicine. ? You have increasing pain going down into your legs or buttocks. ? Your pain does not improve after 2 weeks. ? You have pain at night. ? You lose weight without trying. ? You have a fever or chills. ? You develop nausea or vomiting. ? You develop abdominal pain. Get help right away if: ? You develop new bowel or bladder control problems. ? You have unusual weakness or numbness in your arms or legs. ? You feel faint. These sym (more content not included)... Normal [facility] ED Patient Summaryon 024 ED Patient Summary (Inserted Image. Sidra ble to display) [place] [id number] Patient Discharge Instructions Person Information Name: BRIAN CHICAS Age: 28 Years Arrival Date: 07/11/2023 03:44:28 Discharge Diagnosis: Acute left-sided thoracic back pain; Chest pain Primary Care Physician: Fito Barcenas III, DO Provider Information Primary Provider: Sudhir Dumont DO Advanced Convention Planner:None The exam and treatment you received in the Emergency Department were for an urgent problem and are not intended as complete care. It is important that you follow up with a doctor, nurse practitioner, or physician?s engineer second assistant for ongoing care. If your symptoms become worse or you do not improve as expected and you are unable to reach your usual health care provider, you should return to the Emergency Department. We are available 24 hours a day. SHEETS BRIAN Lozano has been given the following list of patient education materials, prescriptions and follow-up instructions: Follow-up Instructions: With: Address: When: Fito Peterseners [address] [place], [place] [id number] Business (1) In 3 days In the event that this physician does not participate in your insurance network, please consult with your insurance company to find a nearby participating provider. Patient Education Materials: Nonspecific Chest Pain, Adult; Acute Back Pain, Adult A MESSAGE TO ALL PATIENTS REGARDING OPIOIDS PRESCRIPTION OPIOIDS: WHAT YOU NEED TO KNOW Prescription opioids can be used to help relieve gsudikvq-dz-jaypdx pain and are often prescribed following a surgery or injury, or for certain health conditions. These medications can be an important part of the treatment but also come with serious risks. It is important to work with your healthcare provider to make sure you are getting the safest, most effective care. WHAT ARE THE RISKS AND SIDE EFFECTS OF OPIOID USE? Prescription opioids carry serious risks of addiction and overdose, especially with prolonged use. An opioid overdose, often marked by slowed breathing, can cause sudden . The use of prescription opioids can have a number of side effects as well, even when taken as directed: ? Tolerance?meaning you might need to take more of the medication for the same pain relief ? Physical dependence?meaning you have symptoms of withdrawal when a medication is stopped ? Increased sensitivity to pain ? Constipation ? Nausea, vomiting, and dry mouth ? Sleepiness and dizziness ? Confusion ? Depression ? Low levels of testosterone that can result in lower sex drive, energy, and strength ? Itching and sweating RISKS ARE GREATER WITH: ? History of drug misuse, substance use disorder, or overdose ? Mental health conditions (such as depression or anxiety) ? Sleep apnea ? Older age (65 years and older) ? Avoid alcohol while taking prescription opioids. Also, unless specifically advised by your health care provider, medications to avoid include: ? Benzodiazepines (such as Xanax or Valium) ? Muscle relaxants (such as Soma or Flexeril) ? Hypnotics (such as Ambien or Lunesta) ? Other prescription opioids KNOW YOUR OPTIONS Talk to your health care provider about ways to manage your pain that don?t involve prescription opioids. Some of these options may actually work better and have fewer risks and side effects. Options may include: ? Pain relievers such as acetaminophen, ibuprofen, and naproxen ? Some medication that are also used for depression or seizures ? Physical therapy and exercise ? Cognitive behavioral therapy, a psychological, goal-directed approach, in which patients learn how to modify physical, behavioral, and emotional triggers of pain and stress. IF YOU ARE PRESCRIBED OPIOIDS FOR PAIN: ? Never take opioids in greater amounts or more often than prescribed. ? Follow up with your primary health care provider. o Work together to create a plan on how to manage your pain. o Talk about ways to help manage your pain that don?t involve prescription opioids. o Talk about any and all concerns and side effects. ? Help prevent misuse and abuse o Never sell or share prescription opioids. o Never use another person?s prescription opioids. ? Store prescription opioids in a secure place and out of reach of others (this may include visitors, children, friends, and family). ? Safely dispose of unused prescription opioids: Find your community drug take-back program or your pharmacy mail-back program, or flush them down the toilet, following guidance from the Food and Drug Administration (www.fda.gov/Drugs/Resou rcesForYou). ? Visit www.cdc.gov/drugoverdose to learn about the risks of opioids abuse and overdose. ? If you believe you may be struggling with addiction, tell your health medical care evaluation specialist and ask for guidance or call [facility]?Marisela Raya (more content not included)... Normal [facility] HEMATOLOGYOrdered By: SYSTEM SYSTEM on 07-11-2023 Basophils/100 WBC (Bld) 0.8 % Normal 0.0 - 2.0 % Remisol Heme Basophils/Leukocytes Auto (Bld) [Pure # fraction] 0.1 E9/L Normal 0.0 - 0.2 E9/L Remisol Heme Eosinophils (Bld) [#/Vol] 0.3 E9/L Normal 0.0 - 0.5 E9/L Remisol Heme Eosinophils/100 WBC (Bld) 3.6 % Normal 0.0 - 8.0 % Remisol Heme Erythrocyte distribution width (RBC) [Ratio] 13.5 % Normal 10.9 - 14.2 % Remisol Heme Hematocrit (Bld) [Volume fraction] 47.4 % Normal 37.7 - 49.0 % Remisol Heme Hemoglobin (Bld) [Mass/Vol] 16.2 g/dL Normal 13.5 - 17.5 gm/dL Remisol Heme Lymphocytes (Bld) [#/Vol] 2.7 E9/L Normal 1.0 - 4.0 E9/L Remisol Heme Lymphocytes/100 WBC (Bld) 35.6 % Normal 14.0 - 50.0 % Remisol Heme MCH (RBC) [Entitic mass] 28.2 pg Normal 27.0 - 34.0 pg Remisol Heme MCHC (RBC) [Mass/Vol] 34.2 g/dL Normal 31.4 - 36.0 gm/dL Remisol Heme MCV (RBC) [Entitic vol] 82.5 fL Normal 80.0 - 100.0 fL Remisol Heme Monocytes (Bld) [#/Vol] 0.7 E9/L Normal 0.2 - 1.0 E9/L Remisol Heme Monocytes/100 WBC (Bld) 9.7 % Normal 4.0 - 14.0 % Remisol Heme Neutrophils (Bld) [#/Vol] 3.8 E9/L Normal 2.0 - 7.5 E9/L Remisol Heme Neutrophils/100 WBC (Bld) 50.3 % Normal 36.0 - 75.0 % Remisol Heme Platelet 192.0 E9/L Normal 150.0 - 500.0 E9/L Remisol Heme Platelet mean volume (Bld) [Entitic vol] 8.3 fL Normal 6.4 - 10.8 fL Remisol Heme RBC (Bld) [#/Vol] 5.8 E12/L Normal 4.3 - 5.9 E12/L Remisol Heme WBC corrected for nucl RBC Auto (Bld) [#/Vol] 7.5 E9/L Normal 4.0 - 11.0 E9/L Remisol Heme Hep Func Panelon 07-11-2023 Albumin [Mass/Vol] 4.4 g/dL Normal 3.3-5.0 [facility] Comment on above: Performed By: #### 1 [id number], 8422774, 0700108, 75408981, 1190704, 5631892, 32726334 ####[place] [address] [place] [address] Albumin/Globulin (S) [Mass conc ratio] 1.8 Normal 1.1-2.2 [facility] Comment on above: Performed By: #### 1 1258408, 5207572, 0474654, 35796983, 4644971, 0316717, 32176556 ####[place] [address] [place] [address] ALP [Catalytic activity/Vol] 67 Int._Unit/L Normal 21-98 [facility] Comment on above: Performed By: #### 1 [id number], 3233389, 4498777, 36685748, 7437508, 0209154, 42119375 ####[address] [address] ALT No additional P-5'-P [Catalytic activity/Vol] 37 Int._Unit/L Normal 6-46 [facility] Comment on above: Performed By: #### 1 [id number], 4363604, 1349319, 88716076, 7988594, 0983366, 92341072 ####[address] [address] AST [Catalytic activity/Vol] 18 Int._Unit/L Normal 5-43 [facility] Comment on above: Performed By: #### 1 1413204, 2252165, 8675193, 07464112, 0485887, 5067959, 48494584 ####[place] [address] [place] [address] Bilirubin [Mass/Vol] 0.5 mg/dL Normal 0.0-1.1 [facility] Comment on above: Performed By: #### 1 5312895, 2391639, 1473730, 73731562, 7615724, 3505656, 25719933 ####[facility] [address] [place] [address] Bilirubin.direct [Mass/Vol] 0.1 mg/dL Normal 0.0-0.4 [facility] Comment on above: Performed By: #### 1 4066920, 9615585, 1060548, 17832921, 6020959, 1041395, 78408101 ####[facility] [address] [place] [address] Bilirubin.indirect [Mass or moles/Vol] 0.4 mg/dL Normal 0.1-0.9 [facility] Comment on above: Performed By: #### 1 1882496, 8226501, 5320486, 31289250, 5691341, 3341849, 91499400 ####[place] [address] [place] [address] Globulin (S) [Mass/Vol] 2.4 g/dL Normal 1.4-4.0 [facility] Comment on above: Performed By: #### 1 7202845, 3970437, 5130680, 93466358, 3944226, 3849526, 39776465 ####[place] [place] [address] Protein [Mass/Vol] 6.8 g/dL Normal 6.0-7.8 [facility] Comment on above: Performed By: #### 1 5029874, 7956315, 2422175, 14606711, 7090193, 8223286, 79432119 ####[facility] [address] [place] [address] Lipase Levelon 07-11-2023 Lipase [Catalytic activity/Vol] 12 U/L Low 13-58 [facility] Comment on above: Performed By: #### 1 2799158, 7119886, 1124627, 40576693, 5716477, 5492280, 33066955 ####[facility] [address] [place] [address] Monitor Recordon 07-11-2023 Monitor Record [id number]#[id number] FF Normal [facility] Monitor Record [id number]#1.00TI FF Normal [facility] PT & PTTon 07-11-2023 aPTT Coag (PPP) [Time] 31.6 second(s) Normal 25.1-36.5 [facility] Comment on above: Result Comment: Para meter 15 days - 4 weeks 1 - 5 months 6 - 11 months 1 - 5 years 6 - 10 years 11 - 17 years PTT Mean: 35.4 (27.6-45.6) Mean: 33.5 (24.8-40.7) Mean: 32.4 (25.1-40.7) Mean: 31.6 (24.0-39.2) Mean: 31.6 (26.9-38.7) Mean: 31.0 (24.6-38.4) Pediatric Reference ranges were obtained from a study by joe Bailey al. prepared from 1437 samples obtained at 7 different centers using the same coagulation reagent and instrumentation as [facility]. Currently there are no coagulation studies available worldwide for children to 14 days, and no normal ranges. Heparin therapeutic range (represented by Anti-Factor Xa activity of 0.2 - 0.4 U/mL) corresponds to PTT of 56.6 - 109.0 sec. Performed By: #### 1 [id number], 2366785, 6365549, 99969093, 6634307, 0496510, 44108555 ####[facility] [address] [place] [address] INR Coag (PPP) [Relative time] 0.94 {INR} Invalid Interpretation Code [facility] Comment on above: Result Comment: INR results are specifically intended to assess patients stabilized on long-term Anticoagulation therapy suggested INR?s ?Less Intensive Anticoagulation? 2.0 ? 3.0 Conventional Range 3.0 ? 4.5 Performed By: #### 1 9861056, 4417595, 2633490, 55710351, 0205499, 9786786, 51944783 ####[facility] [address] [place] [address] PT Coag (PPP) [Time] 10.5 second(s) Normal 9.4-12.5 [facility] Comment on above: Result Comment: 15 d ays - 4 weeks 1 - 5 months 6 -11 months 1 ? 5 years 6 ? 10 years 11 -17 years Mean: 11.2 (9.5 ? 12.6) Mean: 11.0 (9.7 ? 12.8) Mean: 11.0 (9.8 ? 13.0) Mean: 11.3 (9.9 ? 13.4) Mean: 11.7 (10.0 ? 14.6) Mean: 11.8 (10.0 - 14.1) Pediatric Reference ranges were obtained from a study by [employer]qu[employer] Adrian et al. prepared from 1437 samples obtained at 7 different centers using the same coagulation reagent and instrumentation as [facility]. Currently there are no coagulation studies available worldwide for children to 14 days, and no normal ranges. Performed By: #### 1 1403747, 5903339, 1775807, 16482078, 2505642, 9913980, 49097119 ####[facility] [address] [place] [address] Troponin 0 Hr.on 07-11-2023 Troponin 12.10 pg/mL Low 15.90-38.40 [facility] Comment on above: Result Comment: The 95% CI (Confidence Interval) PPV (Positive Predictive Value) for myocardial infarction in females is 38 pg/mL, in males 51 pg/mL. The results should be used in conjunction with clinical conditions of myocardial infarction. (Access High Sensitivity Troponin I Instructions For Use, Lizz Christian, September 2017) Performed By: #### 1 [id number], 7479405, 8778587, 72398228, 4616530, 9500713, 97146740 ####[facility] [address] [place] [address] Troponin 1 Hr.on 07-11-2023 Troponin 11.80 pg/mL Low 15.90-38.40 [facility] Comment on above: Result Comment: The 95% CI (Confidence Interval) PPV (Positive Predictive Value) for myocardial infarction in females is 38 pg/mL, in males 51 pg/mL. The results should be used in conjunction with clinical conditions of myocardial infarction. (Access High Sensitivity Troponin I Instructions For Use, Lizz Christian, September 2017) Performed By: #### 1 [id number] ####[facility] [address] [place] [address] UA with Cult Rflxon 07-11-19 24 Bilirubin Ql (U) Negative Normal Negative [facility] Comment on above: Performed By: #### 4 [id number] ####[address] [address] Clarity (U) Clear Normal Clear [facility] Comment on above: Performed By: #### 4 [id number] ####[address] [address] Color (U) Yellow Normal Yellow [facility] Comment on above: Result Comment: Micr oscopic readings are only performed on those samples that meet specific criteria set forth by [facility]. Performed By: #### 4 [id number] ####[address] [address] Glucose Ql (U) Negative Normal Negative [facility] Comment on above: Performed By: #### 4 [id number] ####[address] [address] Hemoglobin Auto test strip (U) [Mass/Vol] Negative Normal Negative [facility] Comment on above: Performed By: #### 4 [id number] ####[address] [address] Ketones Auto test strip Ql (U) Negative Normal Negative [facility] Comment on above: Performed By: #### 4 [id number] ####[address] [place] [address] Leukocyte esterase Auto test strip Ql (U) Negative Normal Negative [facility] Comment on above: Performed By: #### 4 [id number] ####[address] [address] Nitrite Auto test strip Ql (U) Negative Normal Negative [facility] Comment on above: Performed By: #### 4 [id number] ####[address] [address] pH (U) 6.0 [pH] Invalid Interpretation Code 5.0-9.0 [facility] Comment on above: Performed By: #### 4 [id number] ####[address] [address] Protein Ql (U) Negative Normal Negative [facility] Comment on above: Performed By: #### 4 [id number] ####[address] [address] Specific gravity (U) [Rel density] 1.024 Invalid Interpretation Code 1.005-1.030 [facility] Comment on above: Performed By: #### 4 [id number] ####[address] [address] Urobilinogen (U) [Mass/Vol] Negative Normal Negative [facility] Comment on above: Performed By: #### 4 [id number] ####[address] [address] Type of Urine collection method Clean Catch Normal [facility] Comment on above: Performed By: #### 4 [id number] ####[address] [address] URINALYSISOrdered By: SYSTEM SYSTEM on 07-11-2023 Bilirubin Ql (U) Negative Normal Negativemg/ d L [facility] UA Auto SS Clarity (U) Clear (07/11/23 5:33 AM) Normal Clear [facility] UA Auto SS Color (U) Yellow 1 (07/11/23 5:33 AM) Normal Yellow [facility] UA Auto SS Comment on above: Interpretive Data: M icroscopic readings are only performed on those samples that meet specific criteria set forth by [facility]. Glucose Ql (U) Negative Normal Negativemg/d L [facility] UA Auto SS Hemoglobin Auto test strip (U) [Mass/Vol] Negative Normal Negativemg/d L [facility] UA Auto SS Ketones Auto test strip Ql (U) Negative Normal Negativemg/d L [facility] UA Auto SS Leukocyte esterase Auto test strip Ql (U) Negative Normal NegativeLeu/ uL [facility] UA Auto SS Nitrite Auto test strip Ql (U) Negative Normal Negativemg/d L [facility] UA Auto SS pH (U) 6.0 *NA* (07/11/23 5:33 AM) Invalid Interpretation Code 5.0 - 9.0 [facility] UA Auto SS Protein Ql (U) Negative Normal Negativemg/d L [facility] UA Auto SS Specific gravity (U) [Rel density] 1.024 *NA* (07/11/23 5:33 AM) Invalid Interpretation Code 1.005 - 1.030 [facility] UA Auto SS Urobilinogen (U) [Mass/Vol] Negative Normal Negativemg/d L [facility] UA Auto SS URINALYSISOrdered By: Sudhir oliva on 07-11-2023 UA Spec Desc Clean Catch (07/11/23 5:33 AM) Normal [facility] UA Auto SS Work Phone: XR Chest Single Viewon 07-10 XR Chest Single View Exam Date/Time: 07/11/2023 04:11 EDT Reason for Exam: Chest pain Report IMPRESSION: NO EVIDENCE OF ACTIVE CHEST DISEASE. CLINICAL HISTORY: Chest pain. COMPARISON: 09/24/2022. COMMENT: AP view portable. The heart is normal in size. The mediastinum is unremarkable. The lungs appear clear. No infiltration nor pleural effusion is evident. No significant change is noted when compared to the prior exam. Ordering Provider: Sudhir Dumont FINAL REPORT Dictated: 07/11/2023 7:57 am Cornelius Amador M.D. Signed (Electronic Signature): 07/11/2023 7:57 am Signed by: Cornelius Amador M.D. Transcribed by: CADENCE Technologist: JU Technical Comments Radiation Dose: Ka,r in mGy = na DAP = na Normal [facility] eGFRon 07-11-2023 eGFR 122 mL/min/1.73 m2 Normal >=59 [facility] Comment on above: Order Comment: Order added by Discern Expert. Performed By: #### 1 [id number] ####[facility] [address] [place] [address] MICRO OTHER TESTSOrdered By: Kyle Stout on 01-24-2022 Influenzae A Ag Negative (01/24/22 4:25 AM) Normal Negative [facility] Influenzae B Ag Negative (01/24/22 4:25 AM) Normal Negative [facility] Rapid COV Int NEG Ctl Pass (01/24/22 4:25 AM) Normal [facility] Rapid COV Int POS Ctl Pass (01/24/22 4:25 AM) Normal [facility] SARS-CoV+SARS-CoV-2 (COVID-19) Ag IA.rapid Ql (Resp) Not Detected (01/24/22 4:25 AM) Normal Not Detected [facility] URINALYSISOrdered By: Chase argueta on 10-06-2021 Bilirubin Ql (U) Negative (10/06/21 1:59 AM) Normal Negative [facility] UA Auto SS Clarity (U) Clear (10/06/21 1:59 AM) Normal Clear [facility] UA Auto SS Color (U) Yellow (10/06/21 1:59 AM) Normal Yellow [facility] UA Auto SS Epithelial cells.squamous LM.HPF (Urine sed) [#/Area] 0-2 /HPF Normal 0-2/HPF [facility] UA Auto SS Glucose Test strip (U) [Mass/Vol] Negative (10/06/21 1:59 AM) Normal Negative [facility] UA Auto SS Hemoglobin Ql (U) Negative (10/06/21 1:59 AM) Normal Negative [facility] UA Auto SS Ketones (U) [Mass/Vol] Negative (10/06/21 1:59 AM) Normal Negative [facility] UA Auto SS [place].plasma/Lithiu m.RBC (Bld) [Mass ratio] 0-3 /HPF Normal 0-3/HPF [facility] UA Auto SS Nitrite Ql (U) Negative (10/06/21 1:59 AM) Normal Negative [facility] UA Auto SS pH (U) 6.5 *NA* (10/06/21 1:59 AM) Invalid Interpretation Code 5.0 - 9.0 [facility] UA Auto SS Protein (U) [Mass/Vol] Negative (10/06/21 1:59 AM) Normal Negative [facility] UA Auto SS Specific gravity (U) [Rel density] 1.025 *NA* (10/06/21 1:59 AM) Invalid Interpretation Code 1.005 - 1.030 [facility] UA Auto SS UA Spec Desc Clean Catch (10/06/21 1:59 AM) Normal [facility] UA Auto SS Urobilinogen Qn (U) 0.6207456 {Kimberli'U}/dL Normal 0.0 - 1.0 EU/dL [facility] UA Auto SS WBC Auto Ql (U) Negative (10/06/21 1:59 AM) Normal Negative [facility] UA Auto SS WBC LM.HPF (Urine sed) [#/Area] 0-5 /HPF Normal 0-5/HPF [facility] UA Auto SS Dipstick and Microscopicon 0 09-13-2020 Appearance (U) Cloudy Critically abnormal Clear [facility] Comment on above: Order Comment: Name Collection Type:: Clean-Voided Midstream Performed By: #### A DDONUAPLUS #### [address] #### URINE CULTURE #### [facility] , Bacteria,Urine None Seen Normal None Seen [facility] Comment on above: Order Comment: Name Collection Type:: Clean-Voided Midstream Performed By: #### A DDONUAPLUS #### [facility] [address] [place] [address] #### URINE CULTURE #### [facility] , Bilirubin,Urine Negative Normal Negative [facility] Comment on above: Order Comment: Name Collection Type:: Clean-Voided Midstream Performed By: #### A DDONUAPLUS #### [facility] [address] [place] [address] [place] #### URINE CULTURE #### [facility] , Color (U) Yellow Normal Yellow [facility] Comment on above: Order Comment: Name Collection Type:: Clean-Voided Midstream Performed By: #### A DDONUAPLUS #### [place] [address] [place] #### URINE CULTURE #### [facility] , Glucose Ql (U) Normal Normal Normal [facility] Comment on above: Order Comment: Name Collection Type:: Clean-Voided Midstream Performed By: #### A DDONUAPLUS #### [facility] [address] [place] [address] #### URINE CULTURE #### [facility] , Hyaline Casts,Urine 9-19 High 0-8 [facility] Comment on above: Order Comment: Name Collection Type:: Clean-Voided Midstream Result Comment: PERF ORMED BY: [place] [address] PATHOLOGIST COLOR BLENDER BEREKET STEIN M.D. Performed By: #### A DDONUAPLUS #### [address] #### URINE CULTURE #### [facility] , Ketones Ql (U) Trace High Negative [facility] Comment on above: Order Comment: Name Collection Type:: Clean-Voided Midstream Performed By: #### A DDONUAPLUS #### [facility] [address] [place] [address] #### URINE CULTURE #### [facility] , Leukocyte esterase Test strip Ql (U) 2+ High Negative [facility] Comment on above: Order Comment: Name Collection Type:: Clean-Voided Midstream Performed By: #### A DDONUAPLUS #### [facility] [address] [place] [address] #### URINE CULTURE #### [facility] , Nitrite,Urine Negative Normal Negative [facility] Comment on above: Order Comment: Name Collection Type:: Clean-Voided Midstream Performed By: #### A DDONUAPLUS #### [facility] [address] [place] [address] #### URINE CULTURE #### [facility] , Occult Blood,Urine Negative Normal Negative [facility] Comment on above: Order Comment: Name Collection Type:: Clean-Voided Midstream Result Comment: PERF ORMED BY: [place] [address] PATHOLOGIST COLOR BLENDER BEREKET STEIN M.D. Performed By: #### A DDONUAPLUS #### [address] #### URINE CULTURE #### [facility] , pH (U) 7.0 [pH] Normal 5.0-9.0 [facility] Comment on above: Order Comment: Name Collection Type:: Clean-Voided Midstream Performed By: #### A DDONUAPLUS #### [address] #### URINE CULTURE #### [facility] , Protein,Urine Negative Normal Negative [facility] Comment on above: Order Comment: Name Collection Type:: Clean-Voided Midstream Performed By: #### A DDONUAPLUS #### [address] #### URINE CULTURE #### [facility] , RBC LM.HPF (Urine sed) [#/Area] 0 /[HPF] Normal 0-4 [facility] Comment on above: Order Comment: Name Collection Type:: Clean-Voided Midstream Performed By: #### A DDONUAPLUS #### [address] #### URINE CULTURE #### [facility] , Specificy [place],Urine 1.022 Normal 1.001-1.030 [facility] Comment on above: Order Comment: Name Collection Type:: Clean-Voided Midstream Performed By: #### A DDONUAPLUS #### [address] #### URINE CULTURE #### [facility] , Squamous Epithelial Cell,Urine 5-9 High 0-2 [facility] Comment on above: Order Comment: Name Collection Type:: Clean-Voided Midstream Performed By: #### A DDONUAPLUS #### [facility] [address] [place] [address] [place] #### URINE CULTURE #### [facility] , Urobilinogen,Urine Normal Normal Normal [facility] Comment on above: Order Comment: Name Collection Type:: Clean-Voided Midstream Performed By: #### A DDONUAPLUS #### [facility] [address] [place] [address] [place] #### URINE CULTURE #### [facility] , WBC,Urine 10-19 High 0-4 [facility] Comment on above: Order Comment: Name Collection Type:: Clean-Voided Midstream Performed By: #### A DDONUAPLUS #### [address] #### URINE CULTURE #### [facility] , ECG 12 lead ECGon 09-13-2020 ECG 12 lead ECG [facility] [place] [address] [place] [address] Electrocardiograph Report Signed Patient: Brian Chicas MR#: [id number] : 1995 Acct:[id number] Age/Sex: 25 / M ADM Date: 09/12/20 Loc: Room: [address] [place] [address] Type: ADM IN Attending Dr: Maximo Rondon MD Ordering Provider: Maximo Rondon MD Date of Service: 09/13/20 ECG/ECG 12 lead ECG: antipsychotics Copies to: Test Reason : Blood Pressure : / mmHG Vent. Rate : 065 BPM Atrial Rate : 065 BPM P-R Int : 160 ms QRS Dur : 102 ms QT Int : 388 ms P-R-T Axes : 046 026 027 degrees QTc Int : 403 ms Normal sinus rhythm with sinus arrhythmia Normal ECG No previous ECGs available Confirmed by ADELINA FISH MD ([id number]) on 09/13/2020 10:09:36 PM Referred By: Electronically Signed By:ADELINA FISH MD Transcribed By: MUS Dictated By: Adelina Fish MD 09/13/20 0908 Signed By: 09/13/20 2209 Normal [facility] Lipid Panelon 09-13-2020 Cholesterol [Mass/Vol] 170 mg/dL Normal 140-200 [facility] Comment on above: Result Comment: Chol less than 200 mg/dl low risk Chol 201-239 mg/dl borderline risk Chol 240 mg/dl and greater high risk Performed By: #### L IPID, [id number], TSH3 wRFLX #### [facility] [address] Cholesterol in HDL [Mass/Vol] 33 mg/dL Normal 29-71 [facility] Comment on above: Result Comment: HDL CHOL ATP-III CLASSIFICATION Cardiovascular Risk HDL > or equal to 60 mg/dL LOW HDL < 40 mg/dL HIGH Performed By: #### L IPID, [id number], TSH3 wRFLX #### [facility] [address] [place] [address] [facility] Cholesterol.total/Cho lesterol in HDL [Mass ratio] 5.2 {ratio} Normal <5.0 [facility] Comment on above: Performed By: #### L IPID, [id number], TSH3 wRFLX #### [facility] [address] [place] [id number] [place] LDL Cholesterol,Calculate d 113 mg/dL High 0-100 [facility] Comment on above: Result Comment: LDL ATP III CLASSIFICATION LDL less than 100 mg/dL Optimal LDL 100-129 mg/dL Near or above optimal LDL 130-159 mg/dL Borderline high LDL 160-189 mg/dL High LDL greater than 189 mg/dL Very high Performed By: #### L IPID, [id number], TSH3 wRFLX #### [facility] [address] [place] [address] [place] Triglyceride w/Reflex 122 mg/dL Normal 35-149 [facility] Comment on above: Result Comment: TRIG ATP III CLASSIFICATION TRIG less than 150 mg/dL Normal TRIG 150-199 mg/dL Borderline high TRIG 200-500 mg/dL High TRIG greater than 500 mg/dL Very high Standard traceable to the Center for Disease Conrtrol and Prevention (CDC) test method. Performed By: #### L IPID, [id number], TSH3 wRFLX #### [address] VLDL CHOLESTEROL 24 mg/dL Normal [facility] Comment on above: Performed By: #### L IPID, [id number], TSH3 wRFLX #### [address] Thyroid Stim Hormone w/Rflxo n 09-13-2020 Thyroid Stim Hormone w/Rflx 0.78 u[iU]/mL Normal 0.45-5.33 [facility] Comment on above: Performed By: #### L IPID, [id number], TSH3 wRFLX #### [address] Urine Cultureon 09-13-2020 Bacteria identified Cx Nom (U) Final report Normal . [facility] Comment on above: Order Comment: sourc e: CVMS Performed By: #### A DDONUAPLUS #### [address] #### URINE CULTURE #### [facility] , Urine Culture, Res 1 Normal . [facility] Comment on above: Order Comment: sourc e: CVMS Result Comment: Mixe d urogenital diane 50,000-100,000 colony forming units per mL Performed at: - [facility] [id number] Cattle Feeder: Lefty Guerin PhD, Phone: [phone] PERFORMED BY: [place] [address] PATHOLOGIST COLOR BLENDER BEREKET STEIN M.D. Performed By: #### A DDONUAPLUS #### [address] #### URINE CULTURE #### [facility] , Vitamin D 25 Hydroxy Totalon 09-13-2020 Vitamin D 25 Hydroxy Total 14.8 ng/mL Low 30-100 [facility] Comment on above: Result Comment: ALEXYS MIN D STATUS 25(OH)VITAMIN D RANGE (ng/mL) Deficient <20 Insufficient 20 to <30 Sufficient 30 to 100 Reference: Lionel MF,Andriy NC, Jonathon MCLAUGHLIN, et al. Evaluation,treatment, and prevention of vitamin D deficiency; an Endocrine Society clinical practice guideline. JCEM. 2010; 96(7):1911-30. PERFORMED BY: [facility] [address] [place] [address] PATHOLOGIST COLOR BLENDER BEREKET STEIN M.D. Performed By: #### L IPID, [id number], TSH3 wRFLX #### [facility] [address] CHLAMYDIA/GONOCOCCUS SHANTELLE ( AB/URINE/PAPon 02-26-2019 Chlamydia trachomatis, SHANTELLE Negative Normal Negative [facility] Comment on above: Performed By: #### C T/NGNA #### [facility] [address] [place], [place] [address] Wendi Kallie Neisseria gonorrhoeae, SHANTELLE Negative Normal Negative [facility] Comment on above: Performed By: #### C T/NGNA #### [facility] [address] [place], [place] [address] Wendi Kallie CBC AUTO DIFFon 02-23-2019 Basophils (Bld) [#/Vol] 0.0 103/ul Normal 0.0-0.1 [facility] Comment on above: Performed By: #### C BC #### [facility] [address] [place], [place] [address] Wendi Kallie Basophils/100 WBC (Bld) 0.5 % Normal 0.2-2.0 [facility] Comment on above: Performed By: #### C BC #### [facility] [address] [place], [place] [address] Wendi Kallie Eosinophils (Bld) [#/Vol] 0.2 103/ul Normal 0.0-0.7 [facility] Comment on above: Performed By: #### C BC #### [facility] [address] [place], [place] [address] Wendi Kallie Eosinophils/100 WBC (Bld) 2.3 % Normal 0.9-7.0 [facility] Comment on above: Performed By: #### C BC #### [facility] [address] [place] [address] Wendi Kallie Erythrocyte distribution width (RBC) [Ratio] 12.5 % Normal 11.0-15.0 [facility] Comment on above: Performed By: #### C BC #### [facility] [address] [place] [address] Wendi Kallie Hematocrit (Bld) [Volume fraction] 46.3 % Normal 42.0-54.0 [facility] Comment on above: Performed By: #### C BC #### [facility] [address] [place] [address] Wendi Kallie Hemoglobin (Bld) [Mass/Vol] 16.2 g/dL Normal 14.0-18.0 [facility] Comment on above: Performed By: #### C BC #### [facility] [address] [place] [address] Wendi Kallie IG # 0.01 10e3/ul Normal 0.00-0.03 [facility] Comment on above: Performed By: #### C BC #### [facility] [address] [place] [address] Wendi Kallie IG % 0.1 % Normal 0.0-0.5 [facility] Comment on above: Performed By: #### C BC #### [facility] [address] [place] [address] Wendi Kallie Lymphocytes (Bld) [#/Vol] 2.1 103/ul Normal 1.2-3.8 [facility] Comment on above: Performed By: #### C BC #### [facility] [address] [place] [address] Wendi Kallie Lymphocytes/100 WBC (Bld) 28.2 % Normal 20.5-60.0 [facility] Comment on above: Performed By: #### C BC #### [facility] [address] [place] [address] Wendi Kallie MANUAL DIFF REQ NO Normal [facility] Comment on above: Performed By: #### C BC #### [facility] [address] [place], [place] [address] Wendi Kallie MCH (RBC) [Entitic mass] 28.5 pg Normal 25.9-34.0 [facility] Comment on above: Performed By: #### C BC #### [facility] [address] [place], [place] [address] Wendi Kallie MCHC (RBC) [Mass/Vol] 35.0 g/dL Normal 29.9-35.2 [facility] Comment on above: Performed By: #### C BC #### [facility] [address] [place], [place] [address] Wendi Kallie MCV (RBC) [Entitic vol] 81.5 fL Normal 80.0-94.0 [facility] Comment on above: Performed By: #### C BC #### [facility] [address] [place] [address] Wendi Kallie Monocytes (Bld) [#/Vol] 0.7 103/ul Normal 0.3-0.8 [facility] Comment on above: Performed By: #### C BC #### [facility] [address] [place] [address] Wendi Kallie Monocytes/100 WBC (Bld) 9.4 % Normal 1.7-12.0 [facility] Comment on above: Performed By: #### C BC #### [facility] [address] [place] [address] Wendi Kallie Neutrophils (Bld) [#/Vol] 4.5 103/ul Normal 1.4-6.5 [facility] Comment on above: Performed By: #### C BC #### [facility] [address] [place] [address] Wendi Kallie Neutrophils/100 WBC (Bld) 59.5 % Normal 43.0-75.0 [facility] Comment on above: Performed By: #### C BC #### [facility] [address] [place], [place] [address] Wendi Kallie Platelet mean volume (Bld) [Entitic vol] 10.2 fL Normal 9.5-13.5 [facility] Comment on above: Performed By: #### C BC #### [facility] [address] [place], [place] [address] Wendi Arreguin Platelets (Bld) [#/Vol] 187 103/ul Normal 150-450 [facility] Comment on above: Performed By: #### C BC #### [facility] [address] [place], [place] [address] Wendi Arreguin RBC (Bld) [#/Vol] 5.68 106/ul Normal 4.70-6.10 [facility] Comment on above: Performed By: #### C BC #### [facility] [address] [place], [place] [address] Wendi Arreguin WBC (Bld) [#/Vol] 7.5 103/ul Normal 4.0-11.0 [facility] Comment on above: Performed By: #### C BC #### [facility] [address] [place], [place] [address] ABD/PELVIS WO CONon 02-23 CT ABD/PELVIS WO CON Patient: ARMAAN CHICAS Exam Date: 02/22/2019 : 1995 Gender:M Ordering : DR. ORTEGA MENDOZA . Admission #: [id number] Family : Order #: [id number] CLICK HERE TO VIEW EXAM RADIOLOGY REPORT PROCEDURE: CT ABDOMEN AND PELVIS WITHOUT CONTRAST COMPARISON: None. INDICATIONS: Acute urinary retention for 6 hours, left flank pain and nausea; history of kidney stones TECHNIQUE: Axial, Coronal, and Sagittal CT images of the abdomen and pelvis were created without IV contrast material. DOSE: 1371 mGycm FINDINGS: KIDNEY - RIGHT: Punctate nonobstructing nephrolithiasis. No hydronephrosis. URETER - RIGHT: No calcifications or abnormal dilation. KIDNEY - LEFT: Punctate nonobstructing nephrolithiasis. Mild hydronephrosis URETER - LEFT: Moderate hydroureter with rapid tapering 1 cm proximal to the ureterovesical junction with no focal obstruction identified URINARY BLADDER: Moderate fluid distention. No calcifications or mass identified LUNG BASES: Punctate pulmonary nodules the largest measures 3 mm right lower lobe axial image 2 LIVER: No enlargement, atrophy, abnormal density, or significant focal lesion. BILIARY: No visible dilatation or calcification. PANCREAS: No lesion, fluid collection, ductal dilatation, or atrophy. SPLEEN: No enlargement or focal lesion. ADRENALS: No mass or enlargement. BOWEL/MESENTERY: No visible mass, obstruction, or bowel wall thickening. Normal appendix AORTA/VASCULAR: No aneurysm. RETROPERITONEUM: No mass or adenopathy. LYMPH NODES: No adenopathy. PELVIC ORGANS: No visible mass. Pelvic organs appropriate for patient age. ABDOMINAL WALL: No mass or hernia. BONES: No bony lesion or fracture. OTHER: Report provided February 22, 2019 at 10:53 p.m. CONCLUSION: 1. Moderate fluid distention of the urinary bladder of unknown etiology 2. Moderate left hydroureteronephrosis with rapid tapering of the distal left ureter of unknown etiology. No obstructing stone or passes definitively visualized. Dictated by: Roni Varma M.D. on 02/23/2019 at 08:37 Approved by: Roni Varma M.D. on 02/23/2019 at 08:41 Normal [facility] CULTURE URINEon 02-23-2019 CULTURE URINE Culture Observations : No growth Normal [facility] Comment on above: Performed By: #### U RCX #### [facility] [address] [place] [address] Wendi Arreguin PROF 14(COMP METB)on 019 Albumin [Mass/Vol] 4.0 g/dL Normal 3.5-5.0 [facility] Comment on above: Performed By: #### C MP #### [facility] [address] [place], [place] [id number] Wendi Kallie Albumin/Globulin [Mass ratio] 1.1 {ratio} Normal [facility] Comment on above: Performed By: #### C MP #### [facility] [address] [place] [address] Wendi Kallie ALP [Catalytic activity/Vol] 59 U/L Normal 38-126 [facility] Comment on above: Performed By: #### C MP #### [facility] [address] [place] [address] Wendi Kallie ALT [Catalytic activity/Vol] 50 U/L Normal 21-72 [facility] Comment on above: Performed By: #### C MP #### [facility] [address] [place] [address] Wendi Kallie Anion gap [Moles/Vol] 11.6 mmol/L Normal [facility] [facility] Comment on above: Performed By: #### C MP #### [facility] [address] [address] Wendi Kallie AST [Catalytic activity/Vol] 19 U/L Normal 17-59 [facility] Comment on above: Performed By: #### C MP #### [facility] [address] [address] Wendi Kallie Bilirubin Ql (U) 0.5 mg/dL Normal 0.2-1.3 [facility] Comment on above: Performed By: #### C MP #### [facility] [address] [place] [address] Wendi Kallie Calcium [Mass/Vol] 9.4 mg/dL Normal 8.4-10.2 [facility] Comment on above: Performed By: #### C MP #### [facility] [address] [place] [address] Wendi Kallie Chloride [Moles/Vol] 106 mmol/L Normal 98-107 [facility] Comment on above: Performed By: #### C MP #### [facility] [address] [place] [address] Wendi Kallie CO2 [Moles/Vol] 26.6 mmol/L Normal 22.0-30.0 [facility] Comment on above: Performed By: #### C MP #### [facility] [address] [place] [address] Wendi Kallie Creatinine [Mass/Vol] 0.80 mg/dL Normal 0.66-1.25 [facility] Comment on above: Performed By: #### C MP #### [facility] [address] [place], [place] [phone] Wendi Kallie EGFR-AF FRENCH >60 Normal >=60 [facility] Comment on above: Performed By: #### C MP #### [facility] [address] [place] [address] Wendi Kallie EGFR-NON AF FRENCH >60 Normal >=60 [facility] Comment on above: Performed By: #### C MP #### [facility] [address] [phone] Wendi Kallie Globulin (S) [Mass/Vol] 3.5 g/dL Normal [facility] Comment on above: Performed By: #### C MP #### [facility] [address] [phone] Wendi Kallie Glucose [Mass/Vol] 97 mg/dL Normal 74-106 [facility] Comment on above: Performed By: #### C MP #### [facility] [address] [phone] Wendi Kallie Potassium [Moles/Vol] 4.2 mmol/L Normal 3.4-5.0 [facility] Comment on above: Performed By: #### C MP #### [facility] [address] [place] [address] Wendi Kallie Protein [Mass/Vol] 7.5 g/dL Normal 6.1-8.2 [facility] Comment on above: Performed By: #### C MP #### [facility] [address] [place], [place] [phone] Wendi Kallie Sodium [Moles/Vol] 140 mmol/L Normal 137-145 [facility] Comment on above: Performed By: #### C MP #### [facility] [address] [place], [place] [phone] Wendi Kallie Urea nitrogen [Mass/Vol] 19.0 mg/dL Normal 9.0-20.0 [facility] Comment on above: Performed By: #### C MP #### [facility] [address] [place], [place] [phone] Wendi Kallie Urea nitrogen/Creatinine [Mass ratio] 23.8 mg/mg Normal [facility] Comment on above: Performed By: #### C MP #### [facility] [address] [place], [place] [phone] Wendi Kallie PROTIMEon 02-23-2019 INR Coag (PPP) [Relative time] 0.96 {INR} Normal [facility] Comment on above: Performed By: #### P TT, PT #### [facility] [address] [place], [place] [address] Wendi Kallie PT Coag (PPP) [Time] PLEASE NOTE: NORMAL RANGE CHANGE 11-14-2013 DUE TO REAGENT LOT CHANGE Normal [facility] Comment on above: Performed By: #### P TT, PT #### [facility] [address] [place], [place] [address] Wendi Kallie PT Coag (PPP) [Time] 10.0 s Normal 9.0-11.6 [facility] Comment on above: Performed By: #### P TT, PT #### [facility] [address] [phone] Wendi Kallie PT Coag (PPP) [Time] SEE BELOW Normal [facility] Comment on above: Result Comment: ERIKA RED INR: 2.0 - 3.0 CONDITIONS NOT LISTED BELOW 2.5 - 3.5 FOR PROSTHETIC HEART VALVE REPLACEMENT 2.5 - 3.5 RECURRENT THROMBOSIS Performed By: #### P TT, PT #### [facility] [address] [place], [place] [phone] Wendi Kallie PTTon 02-23-2019 aPTT Coag (Bld) [Time] PLEASE NOTE: NORMAL RANGE CHANGE 01-21-2015 DUE TO REAGENT LOT CHANGE Normal [facility] Comment on above: Performed By: #### P TT, PT #### [facility] [address] [place] [id number] Wendi Kallie aPTT Coag (Bld) [Time] 23.8 s Normal 22.3-36.2 [facility] Comment on above: Performed By: #### P TT, PT #### [facility] [address] [place], [place] [phone] Wendi Kallie UA RANDOMon 02-23-2019 Bilirubin [Mass/Vol] Negative Normal NEGATIVE [facility] Comment on above: Performed By: #### U A #### [facility] [address] [place], [place] [phone] Wendi Kallie BLOOD MODERATE Normal NEGATIVE [facility] Comment on above: Performed By: #### U A #### [facility] [address] [place], [place] [phone] Wendi Kallie Clarity (U) CLEAR Normal [facility] Comment on above: Performed By: #### U A #### [facility] [address] [place] [address] Wendi Kallie Color (U) LT. YELLOW Normal YELLOW [facility] Comment on above: Performed By: #### U A #### [facility] [address] [place] [address] Wendi Kallie Glucose [Mass/Vol] Negative Normal NEGATIVE [facility] Comment on above: Performed By: #### U A #### [facility] [address] [place] [address] Wendi Kallie Ketones Ql (U) Negative Normal NEGATIVE [facility] Comment on above: Performed By: #### U A #### [facility] [address] [place] [address] Wendi Kallie Nitrite Ql (U) Negative Normal NEGATIVE [facility] Comment on above: Performed By: #### U A #### [facility] [address] [place] [address] Wendi Kallie pH (Bld) 6.0 Normal 5-9 [facility] Comment on above: Performed By: #### U A #### [facility] [address] [place] [address] Wendi Kallie Protein [Mass/Vol] Negative Normal [facility] Comment on above: Performed By: #### U A #### [facility] [address] [place] [address] Wendi Kallie SPEC GRAVITY 1.025 Normal 1.005-<=1.02 5 [facility] Comment on above: Performed By: #### U A #### [facility] [address] [place] [address] Wendi Kallie Urobilinogen Qn (U) 0.2 EU/dl Normal [facility] Comment on above: Performed By: #### U A #### [facility] [address] [place] [address] Wendi Kallie WBC (Bld) [#/Vol] Negative Normal NEGATIVE [facility] Comment on above: Performed By: #### U A #### [facility] [address] [phone] Wendi Arreguin XR RETROGRADE PYELOGRAMon XR RETROGRADE PYELOGRAM Patient: BRIAN CHICAS Exam Date: 02/23/2019 : 1995 Gender:M Ordering : BRIAN CONDE Admission #: [id number] Family : Order #: [id number] CLICK HERE TO VIEW EXAM RADIOLOGY REPORT PROCEDURE: RADIOGRAPH RETROGRADE PYELOGRAM COMPARISON: CT ABD/PELVIS WO CON, 02/22/2019. INDICATIONS: Acute urinary retention, left flank pain and nausea TECHNIQUE: Standard level fluoroscopic mode of operation utilized. FLUORO TIME/IMAGES: 1.15 min/ 8 images FINDINGS: 8 intraprocedural fluoroscopic images demonstrate cannulation and retrograde injection of iodinated contrast into a collecting system, this is not labeled but presumed to be the left. Moderate left hydroureteronephrosis is identified with no intraluminal filling defect. Rapid tapering of the distal ureter is observed again without intraluminal or extraluminal filling defect CONCLUSION: 1. Moderate left hydroureteronephrosis with rapid tapering at the distal ureter of unknown etiology Dictated by: Roni Varma M.D. on 02/23/2019 at 12:32 Approved by: Roni Varma M.D. on 02/23/2019 at 12:33 Normal [facility] Vital Signs Date Time Vital Sign Value Performing Clinician Facility 09-06-2023 11:14-0400 Blood Pressure Location Concepcion Lue [facility] 09-06-2023 11:14-0400 Diastolic blood pressure 88 mm[Hg] Concepcion Lue [facility] 09-06-2023 11:14-0400 Heart rate 69 /min Concepcion Lue [facility] 09-06-2023 11:14-0400 Respiratory rate 16 /min Concepcion Lue [facility] 09-06-2023 11:14-0400 Systolic blood pressure 139 mm[Hg] Concepcion Lue [facility] 08-08-2023 10:26-0400 Blood Pressure Location MARIALUISA MICHOACANO [facility] 08-08-2023 10:26-0400 Diastolic blood pressure 86 mm[Hg] MARIALUISA MICHOACANO [facility] 08-08-2023 10:26-0400 Heart rate 71 /min MARIALUISA MICHOACANO [facility] 08-08-2023 10:26-0400 Respiratory rate 16 /min MARIALUISA MICHOACANO [facility] 08-08-2023 10:26-0400 Systolic blood pressure 137 mm[Hg] MARIALUISA MICHOACANO [facility] 07-11-2023 06:01-0400 Diastolic blood pressure 74 mm[Hg] Sudhir Julia [facility] 07-11-2023 06:01-0400 Heart rate 81 /min Sudhir Julia [facility] 07-11-2023 06:01-0400 Mean blood pressure 88 mm[Hg] Sudhir Julia [facility] 07-11-2023 06:01-0400 Respiratory rate 18 /min Sudhir Julia [facility] 07-11-2023 06:01-0400 SaO2% (BldA) [Mass fraction] 99 % Sudhir Julia [facility] 07-11-2023 06:01-0400 Systolic blood pressure 116 mm[Hg] Sudhir Julia [facility] 07-11-2023 05:31-0400 Diastolic blood pressure 86 mm[Hg] Sudhir Julia [facility] 07-11-2023 05:31-0400 Heart rate 75 /min Sudhir Julia [facility] 07-11-2023 05:31-0400 Mean blood pressure 96 mm[Hg] Sudhir Julia [facility] 07-11-2023 05:31-0400 Respiratory rate 16 /min Sudhir Julia [facility] 07-11-2023 05:31-0400 SaO2% (BldA) [Mass fraction] 98 % Sudhir Julia [facility] 07-11-2023 05:31-0400 Systolic blood pressure 117 mm[Hg] Sudhir Julia [facility] 07-11-2023 04:27-0400 Diastolic blood pressure 91 mm[Hg] Sudhir Julia [facility] 07-11-2023 04:27-0400 Heart rate 75 /min Sudhir Julia [facility] 07-11-2023 04:27-0400 Mean blood pressure 113 mm[Hg] Sudhir Julia [facility] 07-11-2023 04:27-0400 Respiratory rate 19 /min Sudhir Julia [facility] 07-11-2023 04:27-0400 SaO2% (BldA) [Mass fraction] 97 % Sudhir Julia [facility] 07-11-2023 04:27-0400 Systolic blood pressure 157 mm[Hg] Sudhir Julia [facility] 07-11-2023 03:49-0400 Body temperature 97.52 [degF] Sudhir Julia [facility] 07-11-2023 03:49-0400 Heart rate 75 /min Sudhir Julia [facility] 07-11-2023 03:49-0400 Respiratory rate 16 /min Sudhir Julia [facility] 09-24-2022 20:36-0400 Diastolic blood pressure 82 mm[Hg] Kaylinn Dokken [facility] 09-24-2022 20:36-0400 Heart rate 75 /min Kaylinn Dokken [facility] 09-24-2022 20:36-0400 Respiratory rate 18 /min Kaylinn Dokken [facility] 09-24-2022 20:36-0400 SaO2% (BldA) [Mass fraction] 98 % Kaylinn Dokken [facility] 09-24-2022 20:36-0400 Systolic blood pressure 115 mm[Hg] Kaylinn Dokken [facility] 09-24-2022 19:55-0400 Body temperature 97.88 [degF] Kaylinn Dokken [facility] 09-24-2022 19:55-0400 Diastolic blood pressure 74 mm[Hg] Kaylinn Dokken [facility] 09-24-2022 19:55-0400 Heart rate 77 /min Kaylinn Dokken [facility] 09-24-2022 19:55-0400 Respiratory rate 16 /min Janice Contreras [facility] 09-24-2022 19:55-0400 SaO2% (BldA) [Mass fraction] 97 % Janice Contreras [facility] 09-24-2022 19:55-0400 Systolic blood pressure 113 mm[Hg] Janice Contreras [facility] 06-15-2022 00:31-0400 Body temperature 97.52 [degF] [facility] [place] [facility] 06-15-2022 00:31-0400 Diastolic blood pressure 87 mm[Hg] [facility] [place] [facility] 06-15-2022 00:31-0400 Heart rate 67 /min [facility] [place] [facility] 06-15-2022 00:31-0400 Respiratory rate 16 /min [facility] [place] [facility] 06-15-2022 00:31-0400 SaO2% (BldA) [Mass fraction] 99 % [facility] [place] [facility] 06-15-2022 00:31-0400 Systolic blood pressure 158 mm[Hg] [facility] [place] [facility] 01-24-2022 05:34-0500 Diastolic blood pressure 83 mm[Hg] Sudhir Julia [facility] 01-24-2022 05:34-0500 Heart rate 105 /min Sudhir Julia [facility] 01-24-2022 05:34-0500 Hourly Rounding Sudhir Julia [facility] 01-24-2022 05:34-0500 Respiratory rate 18 /min Sudhir Julia [facility] 01-24-2022 05:34-0500 SaO2% (BldA) [Mass fraction] 97 % Sudhir Julia [facility] 01-24-2022 05:34-0500 Systolic blood pressure 126 mm[Hg] Sudhir Julia [facility] 01-24-2022 04:20-0500 Body temperature 98.42 [degF] Sudhir Julia [facility] 01-24-2022 04:20-0500 Diastolic blood pressure 89 mm[Hg] Sudhir Julia [facility] 01-24-2022 04:20-0500 Heart rate 109 /min Sudhir Julia [facility] 01-24-2022 04:20-0500 Hourly Rounding Sudhir Julia [facility] 01-24-2022 04:20-0500 Respiratory rate 16 /min Sudhir Julia [facility] 01-24-2022 04:20-0500 SaO2% (BldA) [Mass fraction] 99 % Sudhir Julia [facility] 01-24-2022 04:20-0500 Systolic blood pressure 138 mm[Hg] Sudhir Julia [facility] 10-06-2021 02:46-0400 Diastolic blood pressure 78 mm[Hg] Sudhir Julia [facility] 10-06-2021 02:46-0400 Heart rate 71 /min Sudhir Julia [facility] 10-06-2021 02:46-0400 Mean blood pressure 95 mm[Hg] Sudhir Julia [facility] 10-06-2021 02:46-0400 Respiratory rate 16 /min Sudhir Julia [facility] 10-06-2021 02:46-0400 SaO2% (BldA) [Mass fraction] 98 % Sudhir Julia [facility] 10-06-2021 02:46-0400 Systolic blood pressure 129 mm[Hg] Sudhir Julia [facility] 10-06-2021 01:52-0400 Body temperature 98.24 [degF] Sudhir Julia [facility] 10-06-2021 01:52-0400 Diastolic blood pressure 92 mm[Hg] Sudhir Julia [facility] 10-06-2021 01:52-0400 Heart rate 74 /min Sudhir Julia [facility] 10-06-2021 01:52-0400 Respiratory rate 18 /min Sudhir Julia [facility] 10-06-2021 01:52-0400 SaO2% (BldA) [Mass fraction] 99 % Sudhir Julia [facility] 10-06-2021 01:52-0400 Systolic blood pressure 148 mm[Hg] Sudhir Julia [facility] Encounters Encounter Date Encounter Type Care Provider Facility Start: 10-18-2023 ambulatory Concepcion Meza Facility:[facility] Start: 09-25-2023 End: 09-25-2023 ambulatory Concepcion Meza Facility:[facility] Start: 09-25-2023 End: 09-25-2023 Patient encounter procedure Concepcion Meza [facility] Start: 09-06-2023 End: 09-06-2023 ambulatory Concepcion Meza Facility:[facility] Start: 09-06-2023 End: 09-06-2023 Patient encounter procedure Concepcion Meza [facility] Start: 08-30-2023 End: 08-30-2023 ambulatory MARIALUISA E MICHOACANO Facility:[facility] Start: 08-30-2023 End: 08-30-2023 Patient encounter procedure MARIALUISA E MICHOACANO [facility] Start: 08-08-2023 End: 08-08-2023 ambulatory MARIALUISA E MICHOACANO Facility: [facility] Start: 08-08-2023 End: 08-08-2023 Patient encounter procedure MARIALUISA E MICHOACANO [facility] Start: 07-11-2023 End: 07-11-2023 Emergency department patient visit Sudhir Dumont [facility] Start: 04-19-2023 ambulatory MARIALUISA E MICHOACANO Facili ty:[facility] [place] Start: 09-24-2022 End: 09-24-2022 Emergency department patient visit Janice Contreras [facility] Start: 06-15-2022 End: 06-15-2022 Emergency department patient visit Deni Liana Scotty [facility] Start: 01-24-2022 End: 01-24-2022 Emergency department patient visit Sudhir Dumont [facility] Start: 10-06-2021 End: 10-06-2021 Emergency department patient visit Sudhir Dumont [facility] Start: 05-11-2021 End: 06-25-2022 Pre-admission assessment Brian Heaton [facility] Start: 04-22-2021 End: 07-22-2021 Recurring Brian Heaton [facility] Start: 02-22-2019 End: 02-24-2019 Patient encounter procedure BRIAN CONDE Facility:[facility] Procedures Date Procedure Procedure Detail Performing Clinician Start: 01-07-2020 Cystoscopy Brian oliveira Start: 01-07-2020 Urodynamic studies JOSE BARTOLOSHANIA RÍOS Urethral stent (phys ical object) Brian Heaton Payers Date Payer Category Payer Unknown [id number] 2022 Unknown 1995 Unknown [id number] [id number] [id number] 1995 Unknown [id number] 2.16.8 [id number] 1995 Unknown [id number] 2.16.8 [id number] 1993 Unknown [id number] 2.16.8 [id number] 1993 Unknown [id number] 2.16.8 [id number] 1993 Unknown [id number] 2.16.8 [id number] 1995 Unknown [id number] 2.16.8 [id number] 1961 Self-pay Social History Date Type Detail Facility Tobacco [facility] Comment on above: denies Sex Assigned At Male [facility] Tobacco smoking status No Smokin g Status Entered [facility] Start: 07-11-2023 End: 09-06-2023 Tobacco smoking status Ex-smoker (finding) [facility] Tobacco smoking status Never [facility] Functional Status Date Assessment Result Facility 09-06-2023 Functional Status N/A [facility] 08-08-2023 Functional Status N/A [facility] 07-11-2023 Functional Status N/A [facility] 09-24-2022 Functional Status N/A [facility] 06-15-2022 Functional Status N/A [facility] 01-24-2022 Functional Status N/A [facility] 10-06-2021 Functional Status N/A [facility] Clinical Notes 10-06-2021 to 09-25-2023 Note Date & Type Note Facility 09-25-2023 Evaluation + Plan note Extrac sendy from: Title:- Clinic Note HOP Author:Derrick MANE, Concepcion Montoya Date:09/25/23 Impression and Plan Assessment and Plan: Diagnosis: Bulbous urethral stricture ([id number] N35.912, Working, Medical). 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 Dec 2019 - JOB neg. no VUR on VCUG. Urodynamics showed intact sensation, >1L capacity, max flow 41 on uroflow (minimal output on pressure flow, only voided 70cc). Cysto showed 1 cm bulbar urethral stricture 01/07/20 by DDM - 1 cm bulbar urethral stricture. Only had 50% sx improvement after Still has difficulty voiding, has to strain. Tried CIC x2 days but stopped given difficulty of passing catheter usp though. IPSS 24 (28). PVR 08/08/23 - 39 cc. JOB 08/30/23 [facility] - No hydro. Cysto today confirms recurrence of bulbar urethral stricture, total ~ 4 cm (proximal 2 cm about 12-14Fr unable to accommodate cystoscope). Discussed treatment options including dilation today vs under anesthesia with chemotherapy balloon vs urethroplasty for more definitive repair. Risks/benefits of each option were discussed. Optilume is a paclitaxel -coated balloon that inhibits fibroblast growth and stricture recurrence for anterior urethral strictures < 3 cm. 75% success rate vs 27-50% with DVIU/dilation. Risks of recurrence, UTI, false passage, post- procedural hematuria, and dysuria. Systemic absorption was minimal. Contraception is recommended if partner has childbearing potential for 6 months after treatment. He would like to try Optilume prior to potential need of urethroplasty. Potential need for 2 procedures discussed due to length of stricture, unable to fully evaluate on cysto today. Risk of needing additional procedures pending bladder findings also discussed. -Will schedule cystoscopy, retrograde urethrogram, urethral dilation with Optilume under MAC anesthesia. The procedure risks, benefits, details, and treatment alternatives have been discussed with the patient. These include bleeding, infection, recurrent scar in over 50%, need for repeat dilation or other procedures, no symptom relief with dilation, among others. Risks of optilume as above. Full informed consent has been obtained. [facility] 07-29-2024 NoteProgress Note-Physician Patient: BRIAN CHICAS Age: 28 years Sex: Male : 1995 Associated Diagnoses: None Author: Derrick MANE, Concepcion Montoya Health Status Allergies: Allergic Reactions (Selected) Severity Not Documented Bactrim DS- Rash. Keflex- Rash. Nonallergic Reactions (Selected) Severity Not Documented Cephalexin- Unknown. Sulfamethoxazole-trimethoprim- Unknown., Allergies (4) Active Severity Reaction Keflex rash Bactrim DS rash sulfamethoxazole-trimethoprim Unknown cephalexin Unknown Current medications: (Selected) Documented Medications Documented Fiber Tabs: mg, Oral, QID, Refills(s) 0 naproxen: Oral, Refills(s) 0 Impression and Plan Assessment and Plan: Diagnosis: Bulbous urethral stricture ([id number] N35.912, Working, Medical). 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 Dec 2019 - JOB neg. no VUR on VCUG. Urodynamics showed intact sensation, >1L capacity, max flow 41 on uroflow (minimal output on pressure flow, only voided 70cc). Cysto showed 1 cm bulbar urethral stricture 01/07/20 by DDM - 1 cm bulbar urethral stricture. Only had 50% sx improvement after Still has difficulty voiding, has to strain. Tried CIC x2 days but stopped given difficulty of passing catheter usp though. IPSS 24 (28). PVR 08/08/23 - 39 cc. JOB 08/30/23 [facility] [place] - No hydro. Cysto today confirms recurrence of bulbar urethral stricture, total ~ 4 cm (proximal 2 cm about 12-14Fr unable to accommodate cystoscope). Discussed treatment options including dilation today vs under anesthesia with chemotherapy balloon vs urethroplasty for more definitive repair. Risks/benefits of each option were discussed. Optilume is a paclitaxel -coated balloon that inhibits fibroblast growth and stricture recurrence for anterior urethral strictures < 3 cm. 75% success rate vs 27-50% with DVIU/dilation. Risks of recurrence, UTI, false passage, post- procedural hematuria, and dysuria. Systemic absorption was minimal. Contraception is recommended if partner has childbearing potential for 6 months after treatment. He would like to try Optilume prior to potential need of urethroplasty. Potential need for 2 procedures discussed due to length of stricture, unable to fully evaluate on cysto today. Risk of needing additional procedures pending bladder findings also discussed. -Will schedule cystoscopy, retrograde urethrogram, urethral dilation with Optilume under MAC anesthesia. The procedure risks, benefits, details, and treatment alternatives have been discussed with the patient. These include bleeding, infection, recurrent scar in over 50%, need for repeat dilation or other procedures, no symptom relief with dilation, among others. Risks of optilume as above. Full informed consent has been obtained.[facility] CenterComment [facility] above:Result Comment: Electronically Signed By: Derrick MANE, Concepcion Jacobs.flaquita\Date and Time Signed: 09/25/23 12:[id number] Hospital Discharge instructions Patient Education 09/25/2023 08:55:46 EU - Cystoscopy Discharge Instructions (CUSTOM) Cystoscopy Voiding after the procedure: there may be some pain, burning, urgency, frequency and blood tinged urine following the procedure. These symptoms usually resolve within 2-5 days. Drink the amount of fluid it takes to keep the urine pink to yellow or clear in color. Drinking enough water and fluids will help to ease any discomfort after your procedure. If you are having problems that seem out of the ordinary, please call. If unable to contact your physician and you feel it is an emergency, go to the nearest emergency room or call 911 Diet you may resume your normal diet. Activity you may resume your normal activities Call if you have a fever over 100 degrees. Follow Up Care 09/06/2023 11:44:48 With:Concepcion Derrick Address:Unknown When: Unknown Comments:Office to schedule cysto, urethral dilation, Optilume [facility] 07-29-2024 NotePatient Education Cystoscopy ? Voiding after the procedure: there may be some pain, burning, urgency, frequency and blood tingedurine following the procedure. These symptoms usually resolve within 2-5 days. Drink the amount of fluid it takes to keep the urine pink to yellow or clear in color. Drinking enough water and fluids will help to ease any discomfort after your procedure. ? If you are having problems that seem out of the ordinary, please call. ? If unable to contact your physician and you feel it is an emergency, go to the nearest emergency room or call 911 ? Diet ? you may resume your normal diet. ? Activity ? you may resume your normal activities ? Call if you have a fever over 100 degrees.[facility] 09-06-2023 Hospital Discharge instructions Patient Education 09/06/2023 11:39:22 Cystoscopy Cystoscopy Cystoscopy is a procedure that is used to help diagnose and sometimes treat conditions that affect the lower urinary tract. The lower urinary tract includes the bladder and the urethra. The urethra is the tube that drains urine from the bladder. Cystoscopy is done using a thin, tube-shaped instrument with a light and camera at the end (cystoscope). The cystoscope may be hard or flexible, depending on the goal of the procedure. The cystoscope is inserted through the urethra, into the bladder. Cystoscopy may be recommended if you have: Urinary tract infections that keep coming back. Blood in the urine (hematuria). An inability to control when you urinate (urinary incontinence) or an overactive bladder. Unusual cells found in a urine sample. A blockage in the urethra, such as a urinary stone. Painful urination. An abnormality in the bladder found during an intravenous pyelogram (IVP) or CT scan. Cystoscopy may also be done to remove a sample of tissue to be examined under a microscope (biopsy). Tell a health care provider about: Any allergies you have. All medicines you are taking, including vitamins, herbs, eye drops, creams, and jyac-cdz-enpcjtw medicines. Any problems you or family members have had with anesthetic medicines. Any blood disorders you have. Any surgeries you have had. Any medical conditions you have. Whether you are or may be . What are the risks? Generally, this is a safe procedure. However, problems may occur, including: Infection. Bleeding. Allergic reactions to medicines. Damage to other structures or organs. What happens before the procedure? Medicines Ask your health care provider about: Changing or stopping your regular medicines. This is especially important if you are taking diabetes medicines or blood thinners. Taking medicines such as aspirin and ibuprofen. These medicines can thin your blood. Do not take these medicines unless your health care provider tells you to take them. Taking rslk-hzj-vlpuqvx medicines, vitamins, herbs, and supplements. Tests You may have an exam or testing, such as: X-rays of the bladder, urethra, or kidneys. CT scan of the abdomen or pelvis. Urine tests to check for signs of infection. General instructions Follow instructions from your health care provider about eating or drinking restrictions. Ask your health care provider what steps will be taken to help prevent infection. These steps may include: ?Washing skin with a germ-killing soap. ?Taking antibiotic medicine. Plan to have a responsible adult take you home from the hospital or clinic. What happens during the procedure? You will be given one or more of the following: ?A medicine to help you relax (sedative). ?A medicine to numb the area (local anesthetic). The area around the opening of your urethra will be cleaned. The cystoscope will be passed through your urethra into your bladder. Germ-free (sterile) fluid will flow through the cystoscope to fill your bladder. The fluid will stretch your bladder so that your health care provider can clearly examine your bladder foster. Your doctor will look at the urethra and bladder. Your doctor may take a biopsy or remove stones. The cystoscope will be removed, and your bladder will be emptied. The procedure may vary among health care providers and hospitals. What can I expect after the procedure? After the procedure, it is common to have: Some soreness or pain in your abdomen and urethra. Urinary symptoms. These include: ?Mild pain or burning when you urinate. Pain should stop within a few minutes after you urinate. This may last for up to 1 week. ?A small amount of blood in your urine for several days. ?Feeling like you need to urinate but producing only a small amount of urine. Follow these instructions at home: Medicines Take jcnp-zux-jhezwxs and prescription medicines only as told by your health care provider. If you were prescribed an antibiotic medicine, take it as told by your health care provider. Do notstop taking the antibiotic even if you start to feel better. General instructions Return to your normal activities as told by your health care provider. Ask your health care provider what activities are safe for you. If you were given a sedative during the procedure, it can affect you for several hours. Do not drive or operate machinery until your health care provider says that it is safe. Watch for any blood in your urine. If the amount of blood in your urine increases, call your healthcare provider. Follow instructions from your health care provider about eating or drinking restrictions. If a tissue sample was removed for testing (biopsy) during your procedure, it is up to you to get your test results. Ask your health care provider, or the department that is doing the test, when yourresults will be ready. Drink enough fluid to keep your urine pale yellow. Keep all follow-up visits. This is important. Contact a health care provider if: You have pain that gets worse or does not get better with medicine, especially pain when you urinate. You have trouble urinating. You have more blood in your urine. Get help right away if: You have blood clots in your urine. You have abdominal pain. You have a fever or chills. You are unable to urinate. Summary Cystoscopy is a procedure that is used to help diagnose and sometimes treat conditions that affect the lower urinary tract. Cystoscopy is done using a thin, tube-shaped instrument with a light and camera at the end. After the procedure, it is common to have some soreness or pain in your abdomen and urethra. Watch for any blood in your urine. If the amount of blood in your urine increases, call your healthcare provider. If you were prescribed an antibiotic medicine, take it as told by your health care provider. Do notstop taking the antibiotic even if you start to feel better. This information is not intended to replace advice given to you by your health care provider. Make sure you discuss any questions you have with your health care provider. Document Revised: 10/27/2021 Document Reviewed: 09/25/2020 [employer] Patient Education 2022 [employer]. 09/06/2023 11:39:20 Urethral Stricture Urethral Stricture Urethral stricture is narrowing of the tube (urethra) that carries urine from the bladder out of the body. The urethra can become narrow due to scar tissue from an injury or infection. This can make it difficult to pass urine. In women, the urethra opens above the vaginal opening. In men, the urethra opens at the tip of the penis, and the urethra is much longer than it is in women. Because of the length of the male urethra, urethral stricture is much more common in men. This condition is treated with surgery. What are the causes? In both men and women, common causes of urethral stricture include: Urinary tract infection (UTI). Sexually transmitted infection (STI). Use of a tube placed into the urethra to drain urine from the bladder (urinary catheter). Urinary tract surgery. In men, common causes of urethral stricture include: A severe injury to the pelvis. Prostate surgery. Injury to the penis. In many cases, the cause of urethral stricture is not known. What increases the risk? You are more likely to develop this condition if you: Are male. Men who have had prostate surgery are at risk of developing this condition. Use a urinary catheter. Have had urinary tract surgery. What are the signs or symptoms? The main symptom of this condition is difficulty passing urine. This may cause decreased urine flow, dribbling, or spraying of urine. Other symptom of this condition may include: Frequent UTIs. Blood in the urine. Pain when urinating. Swelling of the penis in men. Inability to pass urine (urinary obstruction). How is this diagnosed? This condition may be diagnosed based on: Your medical history and a physical exam. Urine tests to check for infection or bleeding. X-rays. Ultrasound. Retrograde urethrogram. This is a type of test in which dye is injected into the urethra and then an X-ray is taken. Urethroscopy. This is when a thin tube with a light and camera on the end (urethroscope) is used tolook at the urethra. How is this treated? This condition is treated with surgery. The type of surgery that you have depends on the severity of your condition. You may have: Urethral dilation. In this procedure, the narrow part of the urethra is stretched open (dilated) with dilating instruments or a small balloon. Urethrotomy. In this procedure, a urethroscope is placed into the urethra, and the narrow part of the urethra is cut open with a surgical blade inserted through the urethroscope. Open surgery. In this procedure, an incision is made in the urethra, the narrow part is removed, and the urethra is reconstructed. Follow these instructions at home: Take uhti-snk-wkmeckb and prescription medicines only as told by your health care provider. If you were prescribed an antibiotic medicine, take it as told by your health care provider. Do notstop taking the antibiotic even if you start to feel better. Drink enough fluid to keep your urine pale yellow. Keep all follow-up visits as told by your health care provider. This is important. Contact a health care provider if: You have signs of a urinary tract infection, such as: ?Frequent urination or passing small amounts of urine frequently. ?Needing to urinate urgently. ?Pain or burning with urination. ?Urine that smells bad or unusual. ?Cloudy urine. ?Pain in the lower abdomen or back. ?Trouble urinating. ?Blood in the urine. ?Vomiting or being less hungry than normal. ?Diarrhea or abdominal pain. ?Vaginal discharge, if you are female. Your symptoms are getting worse instead of better. Get help right away if: You cannot pass urine. You have a fever. You have swelling, bruising, or discoloration of your genital area. This includes the penis, scrotum, and inner thighs for men, and the outer genital organs (vulva) and inner thighs for women. You develop swelling in your legs. You have difficulty breathing. Summary Urethral stricture is narrowing of the tube (urethra) that carries urine from the bladder out of the body. The urethra can become narrow due to scar tissue from an injury or infection. This condition can make it difficult to pass urine. This condition is treated with surgery. The type of surgery that you have depends on the severity of your condition. Contact a health care provider if your symptoms get worse or you have signs of a urinary tract infection. This information is not intended to replace advice given to you by your health care provider. Make sure you discuss any questions you have with your health care provider. Document Revised: 12/21/2021 Document Reviewed: 12/21/2021 [employer] Patient Education 2022 [employer]. Follow Up Care 08/08/2023 11:09:17 With:Derrick MANE, EMETERIO Tamez, URO Address: [address] [place] [phone] When: Unknown [facility] 07-10-2024 NotePatient Education Urology Cystoscopy Cystoscopy is a procedure that is used to help diagnose and sometimes treat conditions that affect the lower urinary tract. The lower urinary tract includes the bladder and the urethra. The urethra is the tube that drains urine from the bladder. Cystoscopy is done using a thin, tube-shaped instrument with a light and camera at the end (cystoscope). The cystoscope may be hard or flexible, depending on the goal of the procedure. The cystoscope is inserted through the urethra, into the bladder. Cystoscopy may be recommended if you have: ? Urinary tract infections that keep coming back. ? Blood in the urine (hematuria). ? An inability to control when you urinate (urinary incontinence) or an overactive bladder. ? Unusual cells found in a urine sample. ? A blockage in the urethra, such as a urinary stone. ? Painful urination. ? An abnormality in the bladder found during an intravenous pyelogram (IVP) or CT scan. Cystoscopy may also be done to remove a sample of tissue to be examined under a microscope (biopsy). Tell a health care provider about: ? Any allergies you have. ? All medicines you are taking, including vitamins, herbs, eye drops, creams, and qzmv-kif-ejlsxkn medicines. ? Any problems you or family members have had with anesthetic medicines. ? Any blood disorders you have. ? Any surgeries you have had. ? Any medical conditions you have. ? Whether you are or may be . What are the risks? Generally, this is a safe procedure. However, problems may occur, including: ? Infection. ? Bleeding. ? Allergic reactions to medicines. ? Damage to other structures or organs. What happens before the procedure? Medicines Ask your health care provider about: ? Changing or stopping your regular medicines. This is especially important if you are taking diabetes medicines or blood thinners. ? Taking medicines such as aspirin and ibuprofen. These medicines can thin your blood. Do not take these medicines unless your health care provider tells you to take them. ? Taking juma-edn-hbtnykf medicines, vitamins, herbs, and supplements. Tests You may have an exam or testing, such as: ? X-rays of the bladder, urethra, or kidneys. ? CT scan of the abdomen or pelvis. ? Urine tests to check for signs of infection. General instructions ? Follow instructions from your health care provider about eating or drinking restrictions. ? Ask your health care provider what steps will be taken to help prevent infection. These steps mayinclude: ? Washing skin with a germ-killing soap. ? Taking antibiotic medicine. ? Plan to have a responsible adult take you home from the hospital or clinic. What happens during the procedure? ? You will be given one or more of the following: ? A medicine to help you relax (sedative). ? A medicine to numb the area (local anesthetic). ? The area around the opening of your urethra will be cleaned. ? The cystoscope will be passed through your urethra into your bladder. ? Germ-free (sterile) fluid will flow through the cystoscope to fill your bladder. The fluid will stretch your bladder so that your health care provider can clearly examine your bladder foster. ? Your doctor will look at the urethra and bladder. Your doctor may take a biopsy or remove stones. ? The cystoscope will be removed, and your bladder will be emptied. The procedure may vary among health care providers and hospitals. What can I expect after the procedure? After the procedure, it is common to have: ? Some soreness or pain in your abdomen and urethra. ? Urinary symptoms. These include: ? Mild pain or burning when you urinate. Pain should stop within a few minutes after you urinate. This may last for up to 1 week. ? A small amount of blood in your urine for several days. ? Feeling like you need to urinate but producing only a small amount of urine. Follow these instructions at home: Medicines ? Take wspn-yqy-fkydyjh and prescription medicines only as told by your health care provider. ? If you were prescribed an antibiotic medicine, take it as told by your health care provider. Do not stop taking the antibiotic even if you start to feel better. General instructions ? Return to your normal activities as told by your health care provider. Ask your health care provider what activities are safe for you. ? If you were given a sedative during the procedure, it can affect you for several hours. Do not drive or operate machinery until your health care provider says that it is safe. ? Watch for any blood in your urine. If the amount of blood in your urine increases, call your health care provider. ? Follow instructions from your health care provider about eating or drinking restrictions. ? If a tissue sample was removed for testing (biopsy) during your procedure, it is up to you to getyour test results. Ask your health care provider, (more content not included)...[facility] Hospital Discharge instructions Patient Education 08/08/2023 11:00:18 Neurogenic Bladder Neurogenic Bladder Neurogenic bladder is a bladder control disorder. It is usually caused by problems with the nerves that control the bladder. The brain sends signals through the spinal cord to the muscles in the bladder that start and stop urine flow. With neurogenic bladder, the nerves and muscles do not work together the way they should. This condition may make the bladder overactive, meaning you have trouble holding urine. In other cases, it may make the bladder underactive. This means that you have trouble passing urine. What are the causes? This condition may be caused by nerve damage or a condition that disrupts the signals from your brain to your bladder. Many things can cause these nerve problems, including: A disease that affects the nervous system, such as: ?Alzheimer's disease. ?Cerebral palsy. ?Multiple sclerosis. ?Diabetes. ?Parkinson's disease. Damage to your brain or spinal cord. This can come from: ?Trauma. ?Tumors. ?Infection. ?Surgery. ?Alcohol abuse. ?Stroke. ?A congenital disability that affects the spinal cord. What increases the risk? You are more likely to develop this condition if you have nerve damage or a nerve disorder. What are the signs or symptoms? Signs and symptoms of this condition include: Leaking or gushing urine (incontinence). A sudden, strong urge to pass urine (urgency). Frequent urination during the day and night. Being unable to empty your bladder completely (urinary retention). Frequent urinary tract infections. How is this diagnosed? This condition may be diagnosed based on: Your symptoms and medical history. A physical exam. Records from a bladder diary. You may be asked to keep a record or log of your bladder symptoms andthe times that you urinate. You may also have tests, such as: A urine test to check for infection. A bladder scan after you urinate to see how much urine is left in your bladder. Tests to measure your urine flow and see how well the flow is controlled (urodynamic tests). A procedure that uses a small device with a camera to look through your urethra into your bladder (cystoscopy). A health care provider who specializes in the urinary tract (urologist) may do this test. Imaging tests of your brain or spine, such as MRI or CT scan. How is this treated? Treatment for this condition depends on the cause and the symptoms that you have. Work closely withyour health care provider to find the treatments that will improve your quality of life. Treatment options include: Learning ways to control when you urinate, such as: ?Urinating at scheduled times. ?Training yourself to delay urination. ?Exercises to strengthen the muscles that control urine flow (Kegel exercises). ?Avoiding foods or drinks that make your symptoms worse. Taking medicines to: ?Stimulate an underactive bladder. ?Relax an overactive bladder. ?Treat a urinary tract infection. Learning how to use a thin tube (catheter) to empty your bladder. A catheter is a hollow tube that you pass through your urethra. Procedures to stimulate the nerves that control your bladder. Surgery, if other treatments do not help. Follow these instructions at home: Lifestyle Keep a bladder diary to find out which foods, liquids, or activities make your symptoms worse. Use your bladder diary to schedule bathroom trips. If you are away from home, plan to be near a bathroom when your schedule says you will need one. Limit beverages that stimulate urination. These include soda, coffee, and tea. After urinating, wait a few minutes and try again. Make sure you urinate just before you leave the house and just before you go to bed. Kegel exercises Do Kegel exercises to strengthen the muscles that control the passing of urine. These muscles are the ones you use to try to hold urine when you need to urinate. To do Kegel exercises: 1.Squeeze your pelvic floor muscles tight, as if you are trying to stop the flow of urine. You should feel a tight lift in your rectal area. If you are female, you should also feel a tightness in your vaginal area. Keep your stomach, buttocks, and legs relaxed. 2.Hold the muscles tight for 5 10 seconds. 3.Relax your muscles for the same amount of time. 4.Repeat 10 times. Repeat this exercise 3 times a day or as many times as told by your health care provider. General instructions Take ekwc-unv-zuoqhuw and prescription medicines only as told by your health care provider. Keep all follow-up visits. This is important. Contact a health care provider if: You are having a hard time controlling your symptoms. Your symptoms are getting worse. You have signs of a urinary tract infection. These may include: ?A burning feeling when you urinate. ?Fever or chills. ?Cloudy or bloody urine. Get help right away if: You cannot pass urine. Summary Neurogenic bladder is a bladder control disorder caused by problems with the nerves that control the bladder. This condition may make the bladder overactive or underactive. This condition may be caused by nerve damage or a condition that disrupts the signals from your brain to your bladder. Treatment depends on the cause of your neurogenic bladder and the symptoms that you have. Work closely with your health care provider to find the treatments that will improve your quality of life. This information is not intended to replace advice given to you by your health care provider. Make sure you discuss any questions you have with your health care provider. Document Revised: 10/29/2020 Document Reviewed: 10/29/2020 [employer] Patient Education 2022 Decision Lens. Follow Up Care 04/19/2023 12:40:46 With:MARIALUISA RÍOS PA-C, URL Address: [address] [place] [id number] When: Unknown [facility] 06-11-2024 NoteChief Complaint Referral *Alondra Syndrome HPI Staff Previous Dr. Conde pt. Last telehealth visit with pt 03/13/20. Here today as referral for neuromuscular dysfunction of bladder by Liberty Razo CNP. 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 In last office note per Dr. Conde pt was to CIC TID. No longer cathing self, stopped shortly after last encounter. Stream had started to get better. Main concerns today, struggle to keep stream going. Occasionally dribbles. Does have to strain, occasionally painful. Does not feel empty. Occasional burning. pins & needles PVR 39ml History of Present Illness staff HPI reviewed and agree. Review of Systems PHQ Score Initial Depression Screen Score: 0 SCORE no fever, chills, malaise, myalgia. no rash/lesions. no chest pain, palpitations, or SOB. no abdominal pain, nausea, vomiting. no unilateral calf swelling, redness, pain Physical Exam Vitals & Measurements HR: 71(Peripheral) RR: 16 BP: 137/86 HT: 65 in HT: 165 cm WT: 120.5 kg WT: 265.1 lb BMI: 44.26 General: nontoxic, NAD Mouth: moist mucosa Lungs: normal respiratory effort Cardio: regular rate, good distal perfusion Abdomen: nondistended, no suprapubic distention or tenderness, no CVA tenderness Neurologic: Grossly normal Skin: No rashes or suspicious lesions Assessment/Plan Prior Dr. Conde pt. Last seen 02/2020. Referred by Liberty Razo CNP for neuromuscular dysfunction of the bladder 1. 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 hx pyelo and prolonged admission in [place]. Dec 2019 - JOB neg. no VUR on VCUG. urodynamics showed intact sensation, >1L capacity, max flow 41 on uroflow (minimal output on pressure flow, only voided 70cc). cysto showed 1 cm bulbar urethralstricture. Per last office note, pt was to CIC TID. No longer cathing, stopped shortly after last encounter. Stream had started to get better. strains to urinate with every void. incredibly painful/difficult. I have to hold onto a shelf. struggles to start stream, keep stream going, empty completely. PVR 39 cc. IPSS 28. UA today neg. Kidney fxn labs 07/11/23: Cr 0.8, eGFR 122 -Will order renal US to r/o hydro -Resume CIC TID. cath supplies provided today -record volumes of cath and voided urine x 3 days prior to next appt. bring voiding diary to appt for review. Follow up in 1 mos to review renal US and diary with Dr. Meza 2. Unspecified urethral stricture, male, unspecified site (N35.919: Unspecified urethral stricture,male, unspecified site) See #1. 3. Kidney stones (N20.0: Calculus of kidney) CT AP wo IV con 06/20/20 [facility] [place] - 1 mm and 2 mm nonobstructing calculi in the left kidney. KUB 06/23/20 [facility] [place] - both kidneys are largely obscured by overlying bowel. no recent flank pain, gross hematuria, or suspected stone passage. Follow-up With When Contact Information MICHOACANO PHILLIPS, MARIALUISA Calhoun, URL [address] [place] [address] Additional Instructions: 1 mos w/ renal US and to review CIC volumes with Dr. Meza Patient Education Neurogenic Bladder Documentation recorded by the ilan Das accurately reflects the services(s) I performed and decisions made by me. Authenticated by Marialuisa Ríos PA-C on 08/08/2023 12:22:23. IKassie, personally scribed for Carolyn Ríos PA-C on 08/08/2023 11:01:35. . Problem List/Past Medical History Ongoing BMI 45.0-49.9, adult Alondra syndrome Hydronephrosis Kidney stones Smoker Unspecified urethral stricture, male, unspecified site Urethral stricture in male Urinary retention Historical Ureter stricture/obstruction Procedure/Surgical History Cystoscopy (01/07/2020), Urodynamics (01/07/2020), Urethral stent. Medications albuterol HFA 90 mcg/inh MDI, 2 puff(s), Inhalation, QID Naprosyn 500 mg Tab, 500 mg= 1 tab(s), Oral, BID Ventolin HFA 90 mcg/inh Aerosol-Adpt, 1 puff(s), Inhalation, q6hr, PRN Allergies Bactrim DS (rash) Keflex (rash) cephalexin (Unknown) sulfamethoxazole-trimethoprim (Unknown) Social History Alcohol - Medium Risk, 07/11/2023 Current, Beer, Liquor, 1-2 times per month, 07/11/2023 Current, Beer, 05/17/2019 Current, 07/24/2018 Current, 08/24/2017 Substance Abuse - Denies Substance Abuse, 07/11/2023 Current, 07/24/2018 Current, 08/24/2017 Tobacco - High Risk, 09/04/2016 Former smoker, quit more than 30 days ago Tobacco Use:. Never Smokeless Tobacco Use:. Cigarettes, Household tobacco concerns: No. Yes, 08/08/2023 Family History Family history is negative Lab Results Ambulatory Point of Care Results Bilirubin Urine Dipstick: Negative (08/08/23 10:25:00) Blood Urine Dipstick: Negative (08/08/23 10:25:00) Glucose Urine Dipstick: Negative (08/08/23 10:25:00) Ketones Urine Dipstick: Negative (08/08/23 10:25:00) Leukoc (more content not included)...[facility] CenterComment [facility]:Result Comment: Electronically Signed By: MARIALUISA RÍOS PA-C\.br\Date and Time Signed: 08/08/2411:22 EDT\.br\Electronically Co-Signed By: Kassie Das\.br\Date and Time Co-Signed: 08/08/23 11:01 EDT\.br\Electronically Co-Signed By: Kassie Das\.br\Date and Time Co-Signed: 08/08/23 11:02 EDT\.br\Electronically Co-Signed By: Kassie Das\.br\Date and Time Co- Signed: 08/08/23 11:06 [id number] Evaluation + Plan noteExtracted from: Title:ED Note Author:Sudhir Dumont DO Date :07/11/23 Acute left-sided thoracic ba ck pain (M54.6: Pain in thoracic spine) Chest pain (R07.9: Chest pain, unspecified) Orders: ketorolac, 15 mg = 1 mL, Injection, IV Push, Once, Stop date 07/11/23 4:30:00 EDT, STAT, Start date 07/11/23 4:30:00 EDT, 07/11/23 4:30:00 EDT ondansetron, 4 mg = 2 mL, Injection, IV Push, Once, Stop date 07/11/23 3:53:00 EDT, STAT, Start date 07/11/23 3:53:00 EDT, 07/11/23 3:53:00 EDT Sodium Chloride 0.9% intravenous solution, 1,000 mL, Soln-IV, IV, Once, Stop date 07/11/23 3:53:00 EDT, STAT, Start date 07/11/23 3:53:00 EDT, Infuse over 61, minute(s) Basic Metabolic Panel CBC w/ Auto Diff ECG 12 Lead Adult ED Cardiac Monitoring eGFR Hepatic Function Panel Lipase Level Oxygen Saturation Oxygen Therapy PT & PTT Saline Lock Insert Troponin 0 Hr. Troponin 1 Hr. UA with Cult Rflx XR Chest Single View Future Appointments Appointment Date:08/08/2023 10:20:00 AM Scheduled Provider:MARIALUISA RÍOS PA-C Location:[facility] Appointment Type:URO New Patient [facility]2024 Hospital Discharge instructions Patient Education 07/11/2023 06:21:40 Nonspecific Chest Pain, Adult Nonspecific Chest Pain, Adult Chest pain is an uncomfortable, tight, or painful feeling in the chest. The pain can feel like a crushing, aching, or squeezing pressure. A person can feel a burning or tingling sensation. Chest paincan also be felt in your back, neck, jaw, shoulder, or arm. This pain can be worse when you move, sneeze, or take a deep breath. Chest pain can be caused by a condition that is life-threatening. This must be treated right away. It can also be caused by something that is not life- threatening. If you have chest pain, it can be hard to know the difference, so it is important to get help right away to make sure that you do not have a serious condition. Some life-threatening causes of chest pain include: Heart attack. A tear in the body's main blood vessel (aortic dissection). Inflammation around your heart (pericarditis). A problem in the lungs, such as a blood clot (pulmonary embolism) or a collapsed lung (pneumothorax). Some non life-threatening causes of chest pain include: Heartburn. Anxiety or stress. Damage to the bones, muscles, and cartilage that make up your chest wall. Pneumonia or bronchitis. Shingles infection (varicella-zoster virus). Your chest pain may come and go. It may also be constant. Your health care provider will do tests and other studies to find the cause of your pain. Treatment will depend on the cause of your chest pain. Follow these instructions at home: Medicines Take jagf-pga-hvklbrl and prescription medicines only as told by your health care provider. If you were prescribed an antibiotic medicine, take it as told by your health care provider. Do notstop taking the antibiotic even if you start to feel better. Activity Avoid any activities that cause chest pain. Do not lift anything that is heavier than 10 lb (4.5 kg), or the limit that you are told, until your health care provider says that it is safe. Rest as directed by your health care provider. Return to your normal activities only as told by your health care provider. Ask your health care provider what activities are safe for you. Lifestyle Do not use any products that contain nicotine or tobacco, such as cigarettes, e- cigarettes, and chewing tobacco. If you need help quitting, ask your health care provider. Do not drink alcohol. Make healthy lifestyle changes as recommended. These may include: ?Getting regular exercise. Ask your health care provider to suggest some exercises that are safe for you. ?Eating a heart-healthy diet. This includes plenty of fresh fruits and vegetables, whole grains, low-fat (lean) protein, and low-fat dairy products. A dietitian can help you find healthy eating options. ?Maintaining a healthy weight. ?Managing any other health conditions you may have, such as high blood pressure (hypertension) or diabetes. ?Reducing stress, such as with yoga or relaxation techniques. General instructions Pay attention to any changes in your symptoms. It is up to you to get the results of any tests that were done. Ask your health care provider, or the department that is doing the tests, when your results will be ready. Keep all follow-up visits as told by your health care provider. This is important. You may be asked to go for further testing if your chest pain does not go away. Contact a health care provider if: Your chest pain does not go away. You feel depressed. You have a fever. You notice changes in your symptoms or develop new symptoms. Get help right away if: Your chest pain gets worse. You have a cough that gets worse, or you cough up blood. You have severe pain in your abdomen. You faint. You have sudden, unexplained chest discomfort. You have sudden, unexplained discomfort in your arms, back, neck, or jaw. You have shortness of breath at any time. You suddenly start to sweat, or your skin gets clammy. You feel nausea or you vomit. You suddenly feel lightheaded or dizzy. You have severe weakness, or unexplained weakness or fatigue. Your heart begins to beat quickly, or it feels like it is skipping beats. These symptoms may represent a serious problem that is an emergency. Do not wait to see if the symptoms will go away. Get medical help right away. Call your local emergency services (911 in the [place] Do not drive yourself to the hospital. Summary Chest pain can be caused by a condition that is serious and requires urgent treatment. It may also be caused by something that is not life-threatening. Your health care provider may do lab tests and other studies to find the cause of your pain. Follow your health care provider's instructions on taking medicines, making lifestyle changes, and getting emergency treatment if symptoms become worse. Keep all follow-up visits as told by your health care provider. This includes visits for any further testing if your chest pain does not go away. This information is not intended to replace advice given to you by your health care provider. Make sure you discuss any questions you have with your health care provider. Document Revised: 04/29/2021 Document Reviewed: 04/29/2021 [employer] Patient Education 2022 [employer] L[employer]. 07/11/2023 06:21:40 Acute Back Pain, Adult Acute Back Pain, Adult Acute back pain is sudden and usually short-lived. It is often caused by an injury to the muscles and tissues in the back. The injury may result from: A muscle, tendon, or ligament getting overstretched or torn. Ligaments are tissues that connect bones to each other. Lifting something improperly can cause a back strain. Wear and tear (degeneration) of the spinal disks. Spinal disks are circular tissue that provide cushioning between the bones of the spine (vertebrae). Twisting motions, such as while playing sports or doing yard work. A hit to the back. Arthritis. You may have a physical exam, lab tests, and imaging tests to find the cause of your pain. Acute back pain usually goes away with rest and home care. Follow these instructions at home: Managing pain, stiffness, and swelling Take kdqu-wvp-gullszp and prescription medicines only as told by your health care provider. Treatment may include medicines for pain and inflammation that are taken by mouth or applied to the skin, or muscle relaxants. Your health care provider may recommend applying ice during the first 24 48 hours after your pain starts. To do this: ?Put ice in a plastic bag. ?Place a towel between your skin and the bag. ?Leave the ice on for 20 minutes, 2 3 times a day. ?Remove the ice if your skin turns bright red. This is very important. If you cannot feel pain, heat, or cold, you have a greater risk of damage to the area. If directed, apply heat to the affected area as often as told by your health care provider. Use theheat source that your health care provider recommends, such as a moist heat pack or a heating pad. ?Place a towel between your skin and the heat source. ?Leave the heat on for 20 30 minutes. ?Remove the heat if your skin turns bright red. This is especially important if you are unable to feel pain, heat, or cold. You have a greater risk of getting burned. Activity Do not stay in bed. Staying in bed for more than 1 2 days can delay your recovery. Sit up and stand up straight. Avoid leaning forward when you sit or hunching over when you stand. ?If you work at a desk, sit close to it so you do not need to lean over. Keep your chin tucked in. Keep your neck drawn back, and keep your elbows bent at a 90-degree angle (right angle). ?Sit high and close to the steering wheel when you drive. Add lower back (lumbar) support to your car seat, if needed. Take short walks on even surfaces as soon as you are able. Try to increase the length of time you walk each day. Do not sit, drive, or head of research & insights one place for more than 30 minutes at a time. Sitting or standing for long periods of time can put stress on your back. Do not drive or use heavy machinery while taking prescription pain medicine. Use proper lifting techniques. When you bend and lift, use positions that put less stress on your back: ?Bend your knees. ?Keep the load close to your body. ?Avoid twisting. Exercise regularly as told by your health care provider. Exercising helps your back heal faster andhelps prevent back injuries by keeping muscles strong and flexible. Work with a physical therapist to make a safe exercise program, as recommended by your health care provider. Do any exercises as told by your physical therapist. Lifestyle Maintain a healthy weight. Extra weight puts stress on your back and makes it difficult to have good posture. Avoid activities or situations that make you feel anxious or stressed. Stress and anxiety increase muscle tension and can make back pain worse. Learn ways to manage anxiety and stress, such as through exercise. General instructions Sleep on a firm mattress in a comfortable position. Try lying on your side with your knees slightlybent. If you lie on your back, put a pillow under your knees. Keep your head and neck in a straight line with your spine (neutral position) when using electronicequipment like smartphones or pads. To do this: ?Raise your smartphone or pad to look at it instead of bending your head or neck to look down. ?Put the smartphone or pad at the level of your face while looking at the screen. Follow your treatment plan as told by your health care provider. This may include: ?Cognitive or behavioral therapy. ?Acupuncture or massage therapy. ?Meditation or yoga. Contact a health care provider if: You have pain that is not relieved with rest or medicine. You have increasing pain going down into your legs or buttocks. Your pain does not improve after 2 weeks. You have pain at night. You lose weight without trying. You have a fever or chills. You develop nausea or vomiting. You develop abdominal pain. Get help right away if: You develop new bowel or bladder control problems. You have unusual weakness or numbness in your arms or legs. You feel faint. These symptoms may represent a serious problem that is an emergency. Do not wait to see if the symptoms will go away. Get medical help right away. Call your local emergency services (911 in the [place] Do not drive yourself to the hospital. Summary Acute back pain is sudden and usually short-lived. Use proper lifting techniques. When you bend and lift, use positions that put less stress on your back. Take yglu-fjo-jbemzxm and prescription medicines only as told by your health care provider, and apply heat or ice as told. This information is not intended to replace advice given to you by your health care provider. Make sure you discuss any questions you have with your health care provider. Document Revised: 05/07/2021 Document Reviewed: 05/07/2021 Elsevier Patient Education 2022 Decision Lens. Follow Up Care 07/11/2023 03:46:19 With:Fito Barcenas Address: [address] [place] [address] [place] [address]- Business (1) When:Within 3 Day(s) [facility]07-29-2023 Hospital Discharge instructions Patient Education 09/24/2022 20:41:44 Acute Bronchitis, Adult, Uzec-ii-Spzj Acute Bronchitis, Adult Acute bronchitis is when air tubes in the lungs (bronchi) suddenly get swollen. The condition can make it hard for you to breathe. In adults, acute bronchitis usually goes away within 2 weeks. A cough caused by bronchitis may last up to 3 weeks. Smoking, allergies, and asthma can make the conditionworse. What are the causes? Germs that cause cold and flu (viruses). The most common cause of this condition is the virus that causes the common cold. Bacteria. Substances that bother (irritate) the lungs, including: ?Smoke from cigarettes and other types of tobacco. ?Dust and pollen. ?Fumes from chemicals, gases, or burned fuel. ?Indoor or outdoor air pollution. What increases the risk? A weak body's defense system. This is also called the immune system. Any condition that affects your lungs and breathing, such as asthma. What are the signs or symptoms? A cough. Coughing up clear, yellow, or green mucus. Making high-pitched whistling sounds when you breathe, most often when you breathe out (wheezing). Runny or stuffy nose. Having too much mucus in your lungs (chest congestion). Shortness of breath. Body aches. A sore throat. How is this treated? Acute bronchitis may go away over time without treatment. Your doctor may tell you to: Drink more fluids. This will help thin your mucus so it is easier to cough up. Use a device that gets medicine into your lungs (inhaler). Use a vaporizer or a humidifier. These are machines that add water to the air. This helps with coughing and poor breathing. Take a medicine that thins mucus and helps clear it from your lungs. Take a medicine that prevents or stops coughing. It is not common to take an antibiotic medicine for this condition. Follow these instructions at home: Take ndgz-qga-xhpqnay and prescription medicines only as told by your doctor. Use an inhaler, vaporizer, or humidifier as told by your doctor. Take two teaspoons (10 mL) of honey at bedtime. This helps lessen your coughing at night. Drink enough fluid to keep your pee (urine) pale yellow. Do not smoke or use any products that contain nicotine or tobacco. If you need help quitting, ask your doctor. Get a lot of rest. Return to your normal activities when your doctor says that it is safe. Keep all follow-up visits. How is this prevented? Wash your hands often with soap and water for at least 20 seconds. If you cannot use soap and water, use hand metal window frame maker. Avoid contact with people who have cold symptoms. Try not to touch your mouth, nose, or eyes with your hands. Avoid breathing in smoke or chemical fumes. Make sure to get the flu shot every year. Contact a doctor if: Your symptoms do not get better in 2 weeks. You have trouble coughing up the mucus. Your cough keeps you awake at night. You have a fever. Get help right away if: You cough up blood. You have chest pain. You have very bad shortness of breath. You faint or keep feeling like you are going to faint. You have a very bad headache. Your fever or chills get worse. These symptoms may be an emergency. Get help right away. Call your local emergency services (911 int [place] Do not wait to see if the symptoms will go away. Do not drive yourself to the hospital. Summary Acute bronchitis is when air tubes in the lungs (bronchi) suddenly get swollen. In adults, acute bronchitis usually goes away within 2 weeks. Drink more fluids. This will help thin your mucus so it is easier to cough up. Take xeca-qqq-hvsdqac and prescription medicines only as told by your doctor. Contact a doctor if your symptoms do not improve after 2 weeks of treatment. This information is not intended to replace advice given to you by your health care provider. Make sure you discuss any questions you have with your health care provider. Document Revised: 06/16/2021 Document Reviewed: 06/16/2021 [employer] Patient Education 2022 Decision Lens. Follow Up Care 09/24/2022 19:54:07 With:Fito Barcenas Address: [address] [place] [address] [place] [address] Business (1) When:09/27/2022 20:31:35 Comments:Follow-up with your primary care provider in 3 to 5 days. If symptoms worsen, do not improve, or new symptoms arise please report back to emergency department for further evaluation. [facility]07-29-2023 Evaluation + Plan noteExtracted from: Title:ED Note Author:Raji PHILLIPS, Mannie Paredes te:09/24/22 Bronchitis (J40: Bronchitis, not specified as acute or chronic) Orders: albuterol, 1 puff(s), Inhalation, q6hr for wheezing, 18 gram, Refill(s) 0, [facility]/pharmacy #[id number], 166, cm, 09/24/22 19:57:00 EDT, Height/Length Dosing, 120.9, kg, 09/24/22 19:57:00 EDT, Weight Dosing azithromycin, 250 mg, Oral, As Directed, # 6 tab(s), Refills(s) 0, Pharmacy: [facility]/pharmacy #[id number], 166, cm, 09/24/22 19:57:00 EDT, Height/Length Dosing, 120.9, kg, 09/24/22 19:57:00 EDT, Weight Dosing azithromycin, 500 mg = 2 tab(s), Tab, Oral, Once, Stop date 09/24/22 20:32:00 EDT, STAT, Start date 09/24/22 20:32:00 EDT, 09/24/22 20:32:00 EDT predniSONE, 60 mg = 3 tab(s), Tab, Oral, Once, Stop date 09/24/22 20:31:00 EDT, STAT, Start date 09/24/22 20:31:00 EDT, 09/24/22 20:31:00 EDT predniSONE, 50 mg = 1 tab(s), Oral, Daily, X 5 day(s), # 5 tab(s), Refills(s) 0, Pharmacy: [facility]/pharmacy #[id number], 166, cm, 09/24/22 19:57:00 EDT, Height/Length Dosing, 120.9, kg, 09/24/22 19:57:00 EDT, Weight Dosing XR Chest Single View [facility]04-19-2023 Evaluation + Plan noteExtracted from: Title:ED Note Author:Scotty Corona, Deni Paredes te:06/15/22 1. Pain in both feet (M79.67 1: Pain in right foot) 2. Plantar fasciitis (M72.2: Plantar fascial fibromatosis) Orders: naproxen, 500 mg = 1 tab(s), Oral, BID, # 20 tab(s), Refills(s) 0, Pharmacy: [facility]/pharmacy #[id number], 164, cm, 06/15/22 0:33:00 EDT, Height/Length Dosing, 123.1, kg, 06/15/22 0:33:00 EDT, Weight Dosing XR Foot 3+ Views Left XR Foot 3+ Views Right [facility]04-19-2023 Hospital Discharge instructions Patient Education 06/15/2022 02:36:41 Crutch Use, Adult Crutch Use, Adult Crutches are used to take weight off of one of your legs or feet when you stand or walk. You may need crutches to help you heal after an injury or procedure. It is important to use crutches that fit properly. When fitted properly: Each crutch should be 2 3 finger widths below the armpit. Your weight should be supported by your hand and not by resting your armpit on the crutch. It is important that a health care provider has seen you use crutches effectively before you use them at home. What are the risks? Improper use of crutches can injure your shoulders, arms, back, armpits, wrists, and hands. To prevent this from happening, make sure your crutches fit properly, and do not put pressure on your armpits when using the crutches. While using crutches, you also have a higher risk of falling. To prevent falls while using crutchesat home or work: Move furniture or barriers that are in your walkway when possible. Have someone help you with this as needed. Remove rugs, cords, and other items that you can trip on. Have someone help you with this as needed. Keep walkways well lit. Use a backpack so you do not need to carry items in your hands. How to use your crutches How you use your crutches will depend on the reason you need them. Your health care provider may tell you not to put any weight on the affected leg (non weight-bearing). Or your health care provider may allow you to put some, but not all, weight on the affected leg (partial weight-bearing). Follow instructions from your health care provider about weight-bearing. Do not bear weight in an amount that causes pain to the affected area. Walking 1.Stand on your healthy leg and lift both crutches at the same time. 2.Place the crutches one step-length in front of you. Keep your weight over the hand business intelligence administrator. 3.Bring your healthy leg forward to meet, or land slightly ahead of, the crutches. 4.Repeat. Going up steps If there is no handrail: 1.Walk up to steps and put weight on hand business intelligence administrator to step up. 2.Step up with the healthy leg. 3.Step up with the crutches and injured leg. 4.Repeat. If there is a handrail: 1.Hold both crutches in one hand. 2.Place your other hand on the handrail. 3.Place your weight on your arms and step up with your healthy leg. 4.Bring the crutches and the injured leg up to that step. 5.Continue in this way. If you feel unsteady on steps, you can go up steps on your buttocks. To go up, sit on the lowest step with your injured leg in front and holding both crutches flat against the stairs in one hand. Then use your free hand and your healthy leg for support to scoot your buttocks up to the next step. Going down steps If there is no handrail: 1.Step down with the injured leg and crutches. Make sure to keep the crutch tips in the center of the step, not close to the front edge. 2.Step down with the healthy leg. 3.Repeat. If there is a handrail: 1.Place one hand on the handrail. 2.Hold both crutches with your free hand. 3.Lower your injured leg and crutches to the step below you. Make sure to keep the crutch tips in the center of the step, not close to the front edge. 4.Lower your healthy leg down to the next step. 5.Repeat. If you feel unsteady on steps, you can go down steps on your buttocks. To go down, sit on the highest step with your injured leg in front and holding both crutches flat against the stairs in the other hand. Then use your free hand and your healthy leg for support to scoot your buttocks down to the next step. Standing up Move to the edge of the seat. If there is an armrest: 1.Hold the injured leg forward. 2.Grab the armrest with one hand and the top of the crutches with the other hand. 3.Using the armrest and your crutches, pull yourself up to a standing position. If there is no armrest: 1.Hold the injured leg forward. 2.Hold on to the seat with one hand and the top of the crutches with the other hand. 3.Using the seat and your crutches, bring yourself up to a standing position. Sitting down Move back until your leg touches the edge of the seat. If there is an armrest: 1.Hold the injured leg forward. 2.Grab the armrest with one hand and the top of the crutches with the other hand. 3.Slowly lower yourself to a sitting position. If there is no armrest: 1.Hold the injured leg forward. 2.Reach for and hold on to the seat with one hand and hold on to the top of the crutches with the other hand. 3.Slowly lower yourself to a sitting position. Contact a health care provider if: You feel unsteady using crutches. You develop any new pain. You develop any numbness or tingling. Your crutches do not fit. Get help right away if: You fall. Summary Crutches are used when you need to take weight off of one of your legs or feet to stand or walk. To prevent injury, make sure your crutches fit properly, and do not put pressure on your armpits when using the crutches. Follow instructions from your health care provider about weight-bearing. This information is not intended to replace advice given to you by your health care provider. Make sure you discuss any questions you have with your health care provider. Document Revised: 09/04/2019 Document Reviewed: 09/04/2019 [employer] Patient Education 2022 [employer]. 06/15/2022 02:36:41 Plantar Fasciitis Plantar Fasciitis Plantar fasciitis is a painful foot condition that affects the heel. It occurs when the band of tissue that connects the toes to the heel bone (plantar fascia) becomes irritated. This can happen as the result of exercising too much or doing other repetitive activities (overuse injury). Plantar fasciitis can cause mild irritation to severe pain that makes it difficult to walk or move.The pain is usually worse in the morning after sleeping, or after sitting or lying down for a period of time. Pain may also be worse after long periods of walking or standing. What are the causes? This condition may be caused by: Standing for long periods of time. Wearing shoes that do not have good arch support. Doing activities that put stress on joints (high-impact activities). This includes ballet and exercise that makes your heart beat faster (aerobic exercise), such as running. Being overweight. An abnormal way of walking (gait). Tight muscles in the back of your lower leg (calf). High arches in your feet or flat feet. Starting a new athletic activity. What are the signs or symptoms? The main symptom of this condition is heel pain. Pain may get worse after the following: Taking the first steps after a time of rest, especially in the morning after awakening, or after you have been sitting or lying down for a while. Long periods of standing still. Pain may decrease after 30 45 minutes of activity, such as gentle walking. How is this diagnosed? This condition may be diagnosed based on your medical history, a physical exam, and your symptoms. Your health care provider will check for: A tender area on the bottom of your foot. A high arch in your foot or flat feet. Pain when you move your foot. Difficulty moving your foot. You may have imaging tests to confirm the diagnosis, such as: X-rays. Ultrasound. MRI. How is this treated? Treatment for plantar fasciitis depends on how severe your condition is. Treatment may include: Rest, ice, pressure (compression), and raising (elevating) the affected foot. This is called RICE therapy. Your health care provider may recommend RICE therapy along with msjp-iru-kctuovj pain medicines to manage your pain. Exercises to stretch your calves and your plantar fascia. A splint that holds your foot in a stretched, upward position while you sleep (night splint). Physical therapy to relieve symptoms and prevent problems in the future. Injections of steroid medicine (cortisone) to relieve pain and inflammation. Stimulating your plantar fascia with electrical impulses (extracorporeal shock wave therapy). This is usually the last treatment option before surgery. Surgery, if other treatments have not worked after 12 months. Follow these instructions at home: Managing pain, stiffness, and swelling If directed, put ice on the painful area. To do this: ?Put ice in a plastic bag, or use a frozen bottle of water. ?Place a towel between your skin and the bag or bottle. ?Roll the bottom of your foot over the bag or bottle. ?Do this for 20 minutes, 2 3 times a day. Wear athletic shoes that have air-sole or gel-sole cushions, or try soft shoe inserts that are designed for plantar fasciitis. Elevate your foot above the level of your heart while you are sitting or lying down. Activity Avoid activities that cause pain. Ask your health care provider what activities are safe for you. Do physical therapy exercises and stretches as told by your health care provider. Try activities and forms of exercise that are easier on your joints (low impact). Examples include swimming, water aerobics, and biking. General instructions Take ibxx-quj-kdkoqeh and prescription medicines only as told by your health care provider. Wear a night splint while sleeping, if told by your health care provider. Loosen the splint if yourtoes tingle, become numb, or turn cold and blue. Maintain a healthy weight, or work with your health care provider to lose weight as needed. Keep all follow-up visits. This is important. Contact a health care provider if you have: Symptoms that do not go away with home treatment. Pain that gets worse. Pain that affects your ability to move or do daily activities. Summary Plantar fasciitis is a painful foot condition that affects the heel. It occurs when the band of tissue that connects the toes to the heel bone (plantar fascia) becomes irritated. Heel pain is the main symptom of this condition. It may get worse after exercising too much or standing still for a long time. Treatment varies, but it usually starts with rest, ice, pressure (compression), and raising (elevating) the affected foot. This is called RICE therapy. Pctu-dsr-nkqroyo medicines can also be used to manage pain. This information is not intended to replace advice given to you by your health care provider. Make sure you discuss any questions you have with your health care provider. Document Revised: 06/01/2020 Document Reviewed: 06/01/2020 [employer] Patient Education 2022 [employer]. 06/15/2022 02:36:41 Foot Pain Foot Pain Many things can cause foot pain. Some common causes are: An injury. A sprain. Arthritis. Blisters. Bunions. Follow these instructions at home: Managing pain, stiffness, and swelling If directed, put ice on the painful area: Put ice in a plastic bag. Place a towel between your skin and the bag. Leave the ice on for 20 minutes, 2 3 times a day. Activity Do not stand or walk for long periods. Return to your normal activities as told by your health care provider. Ask your health care provider what activities are safe for you. Do stretches to relieve foot pain and stiffness as told by your health care provider. Do not lift anything that is heavier than 10 lb (4.5 kg), or the limit that you are told, until your health care provider says that it is safe. Lifting a lot of weight can put added pressure on your feet. Lifestyle Wear comfortable, supportive shoes that fit you well. Do not wear high heels. Keep your feet clean and dry. General instructions Take bvbd-ugo-otgkegt and prescription medicines only as told by your health care provider. Rub your foot gently. Pay attention to any changes in your symptoms. Keep all follow-up visits as told by your health care provider. This is important. Contact a health care provider if: Your pain does not get better after a few days of self-care. Your pain gets worse. You cannot stand on your foot. Get help right away if: Your foot is numb or tingling. Your foot or toes are swollen. Your foot or toes turn white or blue. You have warmth and redness along your foot. Summary Common causes of foot pain are injury, sprain, arthritis, blisters, or bunions. Ice, medicines, and comfortable shoes may help foot pain. Contact your health care provider if your pain does not get better after a few days of self-care. This information is not intended to replace advice given to you by your health care provider. Make sure you discuss any questions you have with your health care provider. Document Revised: 05/19/2021 Document Reviewed: 05/19/2021 [employer] Patient Education 2022 [employer]. Follow Up Care 06/15/2022 00:26:35 With:Los Yusuf Address: [facility] [address] [place] [address]- 0 Business (1) When:06/18/2022 Comments:Return to the emergency room if your pain gets worse or any new symptoms With:Fito Barcenas Address: [address] [place] [address], [place] [address]- Business (1) When:Within 3 Day(s) [facility]11-28-2022 Evaluation + Plan noteExtracted from: Title:ED Note Author:Sudhir Dumont DO Date :01/24/22 Acute URI (J06.9: Acute uppe r respiratory infection, unspecified) Orders: acetaminophen, 650 mg = 2 tab(s), Tab, Oral, Once, Stop date 01/24/22 4:19:00 EST, STAT, Start date 01/24/22 4:19:00 EST, 01/24/22 4:19:00 EST brompheniramine/dextromethorphan/PSE, 5 mL, Oral, QID for cough and congestion, 200 mL, Refill(s) 0, [facility]/pharmacy #[id number], 162.6, cm, 01/24/22 4:33:00 EST, Height/Length Dosing, 121, kg, 01/24/22 4:33:00 EST, Weight Dosing Influenza A&B Ag Rapid COVID Antigen ([facility]) [facility]11-28-2022 Hospital Discharge instructions Patient Education 01/24/2022 05:35:41 Upper Respiratory Infection, Adult Upper Respiratory Infection, Adult An upper respiratory infection (URI) is a common viral infection of the nose, throat, and upper airpassages that lead to the lungs. The most common type of URI is the common cold. URIs usually get better on their own, without medical treatment. What are the causes? A URI is caused by a virus. You may catch a virus by: Breathing in droplets from an infected person's cough or sneeze. Touching something that has been exposed to the virus (contaminated) and then touching your mouth, nose, or eyes. What increases the risk? You are more likely to get a URI if: You are very young or very old. It is lucila or winter. You have close contact with others, such as at a daycare, school, or health care facility. You smoke. You have long-term (chronic) heart or lung disease. You have a weakened disease-fighting (immune) system. You have nasal allergies or asthma. You are experiencing a lot of stress. You work in an area that has poor air circulation. You have poor nutrition. What are the signs or symptoms? A URI usually involves some of the following symptoms: Runny or stuffy (congested) nose. Sneezing. Cough. Sore throat. Headache. Fatigue. Fever. Loss of appetite. Pain in your forehead, behind your eyes, and over your cheekbones (sinus pain). Muscle aches. Redness or irritation of the eyes. Pressure in the ears or face. How is this diagnosed? This condition may be diagnosed based on your medical history and symptoms, and a physical exam. Your health care provider may use a cotton swab to take a mucus sample from your nose (nasal swab). This sample can be tested to determine what virus is causing the illness. How is this treated? URIs usually get better on their own within 7 10 days. You can take steps at home to relieve your symptoms. Medicines cannot cure URIs, but your health care provider may recommend certain medicines to help relieve symptoms, such as: Qvyn-yig-vkyhzlg cold medicines. Cough suppressants. Coughing is a type of defense against infection that helps to clear the respiratory system, so take these medicines only as recommended by your health care provider. Fever-reducing medicines. Follow these instructions at home: Activity Rest as needed. If you have a fever, stay home from work or school until your fever is gone or until your health care provider says you are no longer contagious. Your health care provider may have you wear a face mask to prevent your infection from spreading. Relieving symptoms Gargle with a salt-water mixture 3 4 times a day or as needed. To make a salt- water mixture, completely dissolve 1 tsp of salt in 1 cup of warm water. Use a cool-mist humidifier to add moisture to the air. This can help you breathe more easily. Eating and drinking Drink enough fluid to keep your urine pale yellow. Eat soups and other clear broths. General instructions Take bbgr-sjz-agpjnsw and prescription medicines only as told by your health care provider. These include cold medicines, fever reducers, and cough suppressants. Do not use any products that contain nicotine or tobacco, such as cigarettes and e-cigarettes. If you need help quitting, ask your health care provider. Stay away from secondhand smoke. Stay up to date on all immunizations, including the yearly (annual) flu vaccine. Keep all follow-up visits as told by your health care provider. This is important. How to prevent the spread of infection to others URIs can be passed from person to person (are contagious). To prevent the infection from spreading: ?Wash your hands often with soap and water. If soap and water are not available, use hand metal window frame maker. ?Avoid touching your mouth, face, eyes, or nose. ?Cough or sneeze into a tissue or your sleeve or elbow instead of into your hand or into the air. Contact a health care provider if: You are getting worse instead of better. You have a fever or chills. Your mucus is brown or red. You have yellow or brown discharge coming from your nose. You have pain in your face, especially when you bend forward. You have swollen neck glands. You have pain while swallowing. You have white areas in the back of your throat. Get help right away if: You have shortness of breath that gets worse. You have severe or persistent: ?Headache. ?Ear pain. ?Sinus pain. ?Chest pain. You have chronic lung disease along with any of the following: ?Wheezing. ?Prolonged cough. ?Coughing up blood. ?A change in your usual mucus. You have a stiff neck. You have changes in your: ?Vision. ?Hearing. ?Thinking. ?Mood. Summary An upper respiratory infection (URI) is a common infection of the nose, throat, and upper air passages that lead to the lungs. A URI is caused by a virus. URIs usually get better on their own within 7 10 days. Medicines cannot cure URIs, but your health care provider may recommend certain medicines to help relieve symptoms. This information is not intended to replace advice given to you by your health care provider. Make sure you discuss any questions you have with your health care provider. Document Released: 08/09/2001 Document Revised: 02/21/2019 Document Reviewed: 09/29/2017 [employer] Patient Education 2020 [employer] Follow Up Care 01/24/2022 04:18:44 With:Fito Barcenas Address: [address] [place] [address] [place] [address] Business (1) When:01/31/2022 05:25:48 only if needed [facility]08-10-2022 Evaluation + Plan noteExtracted from: Title:ED Note Author:Sudhir Dumont DO Date :10/06/21 Dysuria (R30.0: Dysuria) Orders: tamsulosin, 0.4 mg = 1 cap(s), Oral, Daily, X 7 day(s), # 7 cap(s), Refills(s) 0, Pharmacy: [facility]/pharmacy #[id number], 170, cm, 10/06/21 1:57:00 EDT, Height/Length Dosing, 121, kg, 10/06/21 1:57:00 EDT, Weight Dosing UA With Cult Reflex [facility]08-10-2022 Hospital Discharge instructions Patient Education 10/06/2021 02:47:01 Dysuria Dysuria Dysuria is pain or discomfort while urinating. The pain or discomfort may be felt in the part of your body that drains urine from the bladder (urethra) or in the surrounding tissue of the genitals. The pain may also be felt in the groin area, lower abdomen, or lower back. You may have to urinate frequently or have the sudden feeling that you have to urinate (urgency). Dysuria can affect both men and women, but it is more common in women. Dysuria can be caused by many different things, including: Urinary tract infection. Kidney stones or bladder stones. Certain sexually transmitted infections (STIs), such as chlamydia. Dehydration. Inflammation of the tissues of the vagina. Use of certain medicines. Use of certain soaps or scented products that cause irritation. Follow these instructions at home: General instructions Watch your condition for any changes. Urinate often. Avoid holding urine for long periods of time. After a bowel movement or urination, women should cleanse from front to back, using each tissue only once. Urinate after sexual intercourse. Keep all follow-up visits as told by your health care provider. This is important. If you had any tests done to find the cause of dysuria, it is up to you to get your test results. Ask your health care provider, or the department that is doing the test, when your results will be ready. Eating and drinking Drink enough fluid to keep your urine pale yellow. Avoid caffeine, tea, and alcohol. They can irritate the bladder and make dysuria worse. In men, alcohol may irritate the prostate. Medicines Take sbvg-oaz-adexvpp and prescription medicines only as told by your health care provider. If you were prescribed an antibiotic medicine, take it as told by your health care provider. Do notstop taking the antibiotic even if you start to feel better. Contact a health care provider if: You have a fever. You develop pain in your back or sides. You have nausea or vomiting. You have blood in your urine. You are not urinating as often as you usually do. Get help right away if: Your pain is severe and not relieved with medicines. You cannot eat or drink without vomiting. You are confused. You have a rapid heartbeat while at rest. You have shaking or chills. You feel extremely weak. Summary Dysuria is pain or discomfort while urinating. Many different conditions can lead to dysuria. If you have dysuria, you may have to urinate frequently or have the sudden feeling that you have tourinate (urgency). Watch your condition for any changes. Keep all follow-up visits as told by your health care provider. Make sure that you urinate often and drink enough fluid to keep your urine pale yellow. This information is not intended to replace advice given to you by your health care provider. Make sure you discuss any questions you have with your health care provider. Document Released: 11/11/2004 Document Revised: 01/26/2018 Document Reviewed: 11/30/2017 [employer] Patient Education 2020 [employer]. Follow Up Care 10/06/2021 01:48:26 With:Glen NICHOLSON Address: [address] [address]- Business (1) When:10/08/2021 With:Concepcion Meza Address: [address], [address] [address] [phone] Business (1) When:10/08/2021 With:Fito Barcenas Address: [address] [place] [address]- Business (1) When:Within 3 Day(s) [facility]ments Appointment Date:08/09/2021 11:45:00 AM Scheduled Provider:Brian Heaton MD Location[facility] App[facility]ment Type:[facility] ([facility] Future Appointments Appointment Date:09/06/2023 11:00:00 AM Scheduled Provider:Concepcion Meza MD Location:[facility] Appointment Type:URO Office Visit [facility] evaluation + Plan note Future Appointments Appointment Date:09/21/2023 12:00:00 PM Scheduled Provider: Location:[facility] Appointment Type:Urology CALL PAT FT Appointment Date:09/25/2023 08:15:00 AM Scheduled Provider: Location:[facility] Appointment Type:Urology FT [facility] Hospital course Narrative No data available for this section [facility] No data available for this section [facility] No data available for this section [facility] Summary Purpose Family History No Family History Records FoundNo Family History Records Found No data available for this section No data available for this section No data available for this section No data available for this section No data available for this section No Family History Records Found Advance Directives No Advanced Directives Records FoundNo Advanced Directives Records FoundNo Advanced Directives Records Found Additional Source Comments (unrecognized sect ion and content) No Status Records FoundNo Status Records FoundNo Status Records Found INFORMATION SOURCE (unrecogn ized section and content) DATE CREATED AUTHOR 03/19/2019 [facility] DATE CREATED AUTHOR AUTHOR'S ORGANIZ ATION 03/21/2021 [facility] DATE CREATED AUTHOR AUTHOR'S ORGANIZ ATION 09/27/2023 Osmel Rocha [facility] Care Team (unrecognized sect ion and content) Personnel Name: Fito Barcenas III, DO R Address: [address] [place] [address] Personnel Name: Fito Barcenas III, DO R Address: [address] [place] [address] Personnel Name: Fito Barcenas III, DO R Address: Address: [address] [place] [address] Personnel Name: Fito Barcenas III, DO R Address: Address: [address] [place] [address] Personnel Name: Fito Barcenas III, DO R Address: Address: [address] [place] [address] Personnel Name: Fito Barcenas III, DO R Address: Address: [address] [place] [address] Personnel Name: Fito Barcenas III, DO R Address: Address: [address] [place] [address] Personnel Name: Fito Barcenas III, DO R Address: Address: [address] [place] [address] Personnel Name: Fito Barcenas III, DO R Address: Address: [address] [place] [address] Personnel Name: Fito Barcenas III, DO R Address: Address: [address] [place] [address] FOR RECORDS PERTAINING TO PATIENTS WHO ARE OR HAVE BEEN ENROLLED IN A CHEMICAL DEPENDENCY/SUBSTANCEABUSE PROGRAM, SOME INFORMATION MAY BE OMITTED. This clinical summary was aggregated from multiple sources. Caution should be exercised in using it in the provision of clinical care. This summary normalizes information from multiple sources, and as a consequence, information in this document may materially change the coding, format and clinical context of patient data. In addition, data may be omitted in some cases. CLINICAL DECISIONS SHOULD BE BASED ON THE PRIMARY CLINICAL RECORDS. [facility]. provides no warranty or guarantee of the accuracy or completeness of information in this document.
[2023-10-18] MEDS: LACTATED RINGER'S SOLUTION 1,000 ML 50 ML IV (12:55)
[2023-10-18] MEDS: CEFAZOLIN SODIUM 2 GM/50 ML D5W PREMIX IV (13:16)
[2023-10-18] MEDS: IOHEXOL 300 MG/ML - 50 ML BTL 12 MG INJ (14:00)
--- NOTE | 2023-10-18 14:39 | PM.URSON ---
Urology Surgery Operative Note Operative Note Procedure Date: 10/18/23 Time Out Performed: yes Pre-op Diagnosis: Urethral stricture Post-op Diagnosis: same as pre-op Procedures performed: 1. Retrograde urethrogram 2. Cystoscopy, urethral dilation with medicated drug coated balloon (CPT 34469) Anesthesia: General-LMA (Dr. Rosa) Primary Surgeon: Concepcion Meza Complications: none Estimated blood loss (mL): 0 Findings: RUG - narrow 1 cm mid bulbar urethral stricture with 1 cm moderate urethral narrowing both proximal and distal to stricture. Remainder of urethra normal caliber. Minimal bilobar hyperplasia. Capacious bladder with 1+ trabeculations. Moderately dense visible stricture, ~ 16Fr proximal to most narrow portion unable to accommodate cystoscope ~ 12 Fr. 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 After discussion of risks, benefits and alternative options, he elected to proceed with cystoscopy, retrograde urethrogram, urethral dilation with Optilume- drug coated balloon. He understood the potential for recurrence, bleeding, infection and need for contraception for 6 months, first month condom use is needed. Detailed description of Procedure: After informed consent was obtained, the patient was brought to the operating room and transferred onto the operating table in supine position. Sequential compression devices were placed on bilateral lower extremities. The patient received the appropriate dose of preoperative IV antibiotics and general anesthesia LMA was induced. An operative safety timeout was performed confirming the patient's identity and procedure, and all present agreed to proceed. While in supine position, the right leg was bent and c-arm moved into oblique position. The phallus was prepped with betadine and gauze wrapped around glans for traction. Dilute contrast was injected into meatus for retrograde urethrogram with findings as above. The patient was then positioned in modified dorsolithotomy with the appropriate pressure points padded, prepped, and draped in the usual sterile fashion for this procedure. I began by inserting a 22 Martiniquais rigid cystoscope with 30 degree lens into the patient's urethra until the stricture was met. A sensor wire was inserted into the lumen and bladder. A 24 Fr balloon dilator was advanced over the wire and under direct vision, dilated to 20 ALEIDA pressure. The balloon was deflated and cystoscope was inserted past stricture into the bladder with findings as above. There were no bladder tumors, lesions, stones or foreign bodies. Bilateral ureteral orifices were orthotopic and patent. The cystoscope was pulled back and the distal area of stricture was dilated again due to mild annual scar tissue. After the stricture was adequately dilated, the dilator was removed. Next the 30Fr Optilume drug coated balloon was advanced over the wire to the area of stricture. Under direct vision, the balloon was inflated to 10 ALEIDA of pressure. The cystoscope was removed. After 5 minutes, the balloon was deflated and removed, disposed of in chemotherapy bin. An 18Fr [place] tip catheter was inserted over the wire into the bladder without difficulty, wire removed with return of urine, 15cc in balloon, placed to leg bag drainage. The patient tolerated the procedure well without complication. The patient was awakened from anesthesia and sent to the PACU in stable condition. Plan: Dc spencer at home in 2 days. Follow up in 1 month with [facility]. Other Provider present: No Post Operative care instructions: See discharge instructions Attending Doc Confirm Attending Attestation: Yes Urinary Catheter Management Urinary Catheter Management Urethral: Cath placed during this visit: yes Urethral indwelling: Yes Reason for continuing: surgical procedure Insertion date: 10/18/23
--- NOTE | 2023-10-18 15:20 | PC.NURSE ---
Educated patient on spencer catheter removal. Demonstrated to how procedure will be done.
== END 2023-10-18 15:23 | disposition home or self-care (01) ==
PROVIDERS: PCP Family Medicine; Visit Provider Urology
PROC: (CPT 52284; principal; 2023-10-18 13:15)
DX: N35.912 Unspecified bulbous urethral stricture, male (principal); N32.89 Other specified disorders of bladder; N31.8 Other neuromuscular dysfunction of bladder; Z87.891 Personal history of nicotine dependence; K21.9 Gastro-esophageal reflux disease without esophagitis; E66.01 Morbid (severe) obesity due to excess calories; Z68.41 Body mass index [BMI] 40.0-44.9, adult
CPT/HCPCS: 52284; 74420; C1889; J0690; J1100; J2250; J2405; J2704; J3010; Q9967